=== PATIENT | male | born 1985 | race Caucasian/White ===

== ENCOUNTER → 2020-04-19 07:54 | Outpatient (CLI) | payer MEDICARE, OTHER, SELFPAY ==
--- NOTE | 2020-04-19 08:02 | MR_ITS ---
PROCEDURE: MR LUMBAR SPINE WO CON CLINICAL INDICATION: Low back pain, LLE radiculopathy Lt leg pain, numbness, and tingling. X1yr. No injury. No prior. COMPARISON: No exams were available for comparison TECHNIQUE: Standard multiplanar multiecho sequences are performed without contrast. 3-D MIP and myelographic images are also rendered and reviewed FINDINGS: There is normal alignment. The spinal cord ends at the T12 level. T12-L1: Mild degenerative disc disease with minimal left paracentral disc protrusion without impingement. L1-L2, L2-L3, and L3-L4 have an unremarkable appearance. L4-5: Bulging disc with a medium-sized left paracentral and foraminal disc protrusion. This is causing left lateral recess and foraminal narrowing and is impinging upon the left L5 nerve root. There is canal stenosis at this level with facet and ligamentum hypertrophy L5-S1: Unremarkable. IMPRESSION: 1. Bulging disc at L4-5 with a medium-sized left paracentral and foraminal disc protrusion. This is causing left lateral recess and foraminal narrowing and is impinging upon the left L5 nerve root. There is canal stenosis at this level with facet and ligamentum hypertrophy 2. Mild degenerative disc disease T12-L1 with minimal left paracentral disc protrusion without impingement Dictated by: Kamari Alexis MD 04/20/2020 12:24 Kamari Alexis MD in [place] 04/20/2020 12:24
== END ==
PROVIDERS: PCP Physician Assistant; Visit Provider Physician Assistant
DX: M54.10 Radiculopathy, site unspecified (principal); M54.5 Low back pain
CPT/HCPCS: 72148; 76376

== ENCOUNTER 2020-05-16 08:13 | Emergency (ER) | payer MEDICARE, OTHER, SELFPAY ==
[2020-05-16 08:19] VITALS: BP 167/82; PULSE 82; RESP 17; TEMP 37.2; O2SAT 98; BMI 33.9
--- NOTE | 2020-05-16 08:22 | HMH.EDGENADL ---
ED Disposition Clinical Impression: Splenomegaly Low back pain Qualifiers: Chronicity: acute Back pain laterality: left Sciatica presence: without sciatica Qualified Code(s): M54.5 - Low back pain Disposition: Home, Self-Care Condition on Discharge: Good Instructions: DI for Low Back Pain Additional Instructions: Ibuprofen for pain. Rest for 2 days. Heating pad as needed. Additional instructions for BACK PAIN: See your physician as soon as possible for further evaluation. Return immediately if back pain becomes intolerable, or if fever, numbness or weakness of your legs, loss of control of your bowels or bladder. Prescriptions: Ibuprofen [Ibuprofen 800mg Tab] 800 mg PO Q8HP PRN #15 tab PRN Reason: Moderate Pain Transmission Status: Received by [id number] Referrals: Vamsi Atwood MD [Primary Care Provider] - Forms: Work/School Release - Critical Care Critical Care Time: No Attestation: On , the high probability of a clinically significant, sudden or life threatening deterioration of the following system(s) required my full and direct attention, intervention and personal management. The time I documented below is in addition to time spent performing reported procedures but includes the following listed in this critical care notation. Medical Decision Making - Medical Records Medical records reviewed: Yes: I reviewed the patient's medical records. - Ariel Inquiry Pt receiving controlled substance: No Vital Signs: 05/16/20 08:19 05/16/20 09:30 Temperature 99.0 F 99.0 F Temperature Source Oral Oral Pulse Rate 79 Pulse Rate [Right Radial] 82 Respiratory Rate 17 15 Blood Pressure 155/79 H Blood Pressure [Right Arm] 167/82 H Blood Pressure Mean [Right Arm] 110 02 Sat by Pulse Oximetry 98 Oxygen Delivery Method Room Air Room Air - Lab Data Lab results reviewed: Yes: I reviewed the patient's lab results. Lab Results 05/16/20 08:45: WBC 5.8, RBC 4.72, Hgb 13.4 L, Hct 39.2 L, MCV 83.0, MCH 28.5, MCHC 34.3, RDW 14.6, Plt Count 206, MPV 7.7, Neut % (Auto) 59.2, Lymph % (Auto) 32.5, Frio % (Auto) 5.9, Eos % (Auto) 2.0, Baso % (Auto) 0.3, Neut # (Auto) 3.4, Lymph # (Auto) 1.9, Frio # (Auto) 0.3, Eos # (Auto) 0.1, Baso # (Auto) 0.0 05/16/20 08:45: Sodium 140, Potassium 3.9, Chloride 102, Carbon Dioxide 28, Anion Gap 13.9, BUN 11, Creatinine 0.90, Estimated Creat Clear 184, Estimated GFR 96, Est GFR ( Amer) 116, Glucose 133 H, Calcium 9.6, Total Bilirubin 0.5, AST 29, ALT 30, Alkaline Phosphatase 76, Total Protein 7.1, Albumin 4.2, Globulin 2.9, Albumin/Globulin Ratio 1.4, Lipase 46 05/16/20 08:50: Urine Color Yellow, Urine Appearance Clear, Urine pH 6.0, Ur Specific [place] 1.010, Urine Protein Negative, Urine Glucose (UA) Negative, Urine Ketones Negative, Urine Blood Negative, Urine Nitrate Negative, Urine Bilirubin Negative, Urine Urobilinogen 0.2, Ur Leukocyte Esterase Negative, Urine WBC 3-5, Ur Squamous Epith Cells 3-5 Result diagrams: 05/16/20 08:45 05/16/20 08:45 Orders (Tests/Meds): ED MEDICATIONS Discontinued Medications Generic Name Dose Route Start Last Admin Trade Name Freq PRN Reason Stop Dose Admin Ketorolac Tromethamine 30 mg 05/16/20 08:28 05/16/20 08:54 Toradol 30mg/Ml Vial IV 05/16/20 08:29 30 mg ONCE ONE Administration - CT Data CT Scan: Abdomen, Pelvis Time Received: 09:[address] Reviewed: Yes: I have viewed the radiologist's interpretation Findings Narrative: PROCEDURE: CT ABDOMEN PELVIS WO CON CLINICAL INDICATION: flank pain Left flank pain COMPARISON: No exams were available for comparison TECHNIQUE: Axial images obtained with sagittal and coronal reformats. All CT scans at the facility use one or more dose reduction, viz: automated exposure control, ma/kV adjustment per patient size (including targeted exams where dose is matched to indication, i.e. head), or iterative reconstruction technique. FINDIN
--- NOTE | 2020-05-16 08:27 | CT_ITS ---
PROCEDURE: CT ABDOMEN PELVIS WO CON CLINICAL INDICATION: flank pain Left flank pain COMPARISON: No exams were available for comparison TECHNIQUE: Axial images obtained with sagittal and coronal reformats. All CT scans at the facility use one or more dose reduction, viz: automated exposure control, ma/kV adjustment per patient size (including targeted exams where dose is matched to indication, i.e. head), or iterative reconstruction technique. FINDINGS: LOWER THORAX: No acute finding ABDOMEN & PELVIS: The spleen is enlarged at 16 cm AP. The liver, adrenal glands, pancreas, gallbladder, and kidneys have an unremarkable unenhanced appearance. No renal or ureteral calculi. There are few small periaortic lymph nodes. There is a tiny umbilical hernia containing fat. The appendix has an unremarkable appearance. No intestinal obstruction or free air. Scattered small nodes are present in the mesenteries nonspecific. No acute bony findings. IMPRESSION: 1. No acute finding. 2. Splenomegaly Dictated by: Kamari Alexis MD 05/16/2020 09:03 Kamari Alexis MD in [place] 05/16/2020 09:03
[2020-05-16 09:02] LABS: Microscopic, Urine URINE MICROSCOPIC (MICROSCOPIC)
[2020-05-16 09:03] LABS: Appearance,Urine CLEAR (Clear); Bilirubin,Urine Negative (Negative); Blood, Urine Negative (Negative); Color,Urine YELLOW (Yellow); Glucose,Urine (UA) Negative (Negative); Ketones,Urine Negative (Negative); Leukocyte Esterase,Urine Negative (Negative); Nitrate,Urine Negative (Negative); Protein,Urine Negative (Negative); Urobilinogen,Urine 0.2 EU/dl (0.2)
[2020-05-16 09:05] LABS: Basophils % 0.3 % (0.1-2.0); Eosinophils # 0.1 K/mm3 (0.0-0.4); Hematocrit 39.2 % (42.0-52.0); Hemoglobin 13.4 g/dL (14.1-18.0); Lymphocytes # 1.9 K/mm3 (0.7-4.5); Lymphocytes % 32.5 % (10-50); Mean Corpuscular HGB Conc 34.3 g/dL (31.8-35.4); Mean Corpuscular Hemoglobin 28.5 pg (27.0-31.2); Mean Platelet Volume 7.7 fl (7.4-10.4); Monocytes # 0.3 K/mm3 (0.1-1.0); Monocytes % 5.9 % (1.7-9.3); Neutrophils # 3.4 K/mm3 (1.8-7.8); Neutrophils % 59.2 % (37.0-80.0); Platelet Count 206 K/mm3 (142-424); Red Blood Count 4.72 M/mm3 (4.60-6.20); Red Cell Distribution Width 14.6 % (11.5-17.5); White Blood Count 5.8 K/mm3 (4.8-10.8)
[2020-05-16 09:07] LABS: Chloride 102 mmol/L (98-107); Potassium 3.9 mmoL/L (3.5-5.1); Sodium 140 mmol/L (136-145)
[2020-05-16 09:09] LABS: Blood Urea Nitrogen 11 mg/dl (9-20); Creatinine Clearance Estimated 184 mL/min (50-200); Estimated Glomerular Filt Rate 96 ml/min (>60); GFR (African American) 116 ML/MIN (>60)
[2020-05-16 09:10] LABS: Alanine Aminotransferase 30 U/L (12-78); Albumin Level 4.2 g/dl (3.5-5.0); Albumin/Globulin Ratio 1.4 (1.1-1.8); Alkaline Phosphatase 76 U/L (38-126); Anion Gap 13.9 mEq/L (5-15); Aspartate Amino Transferase 29 U/L (17-59); Bilirubin,Total 0.5 mg/dl (0.2-1.3); Calcium 9.6 mg/dl (8.4-10.2); Carbon Dioxide 28 mmol/L (22.0-30.0); Globulin 2.9 g/dL (1.3-3.2); Glucose 133 mg/dl (74-100); Lipase 46 U/L (23-300); Total Protein,Serum 7.1 g/dl (6.3-8.2)
[2020-05-16 09:30] VITALS: BP 155/79; PULSE 79; RESP 15; TEMP 37.2; O2SAT 100
== END 2020-05-16 09:31 | disposition home or self-care (01) ==
PROVIDERS: Emergency Provider Emergency Medicine; PCP Emergency Medicine
DX: R16.1 Splenomegaly, not elsewhere classified (principal); M54.5 Low back pain; F17.210 Nicotine dependence, cigarettes, uncomplicated; F11.11 Opioid abuse, in remission
CPT/HCPCS: 74176; 80053; 81001; 83690; 85025; 96374; 99283

== ENCOUNTER 2020-07-29 19:28 | Emergency (ER) | payer MEDICARE, OTHER, SELFPAY ==
[2020-07-29 19:50] VITALS: BP 176/95; PULSE 86; RESP 16; TEMP 37.1; O2SAT 98; BMI 33.9
[2020-07-29 20:46] VITALS: BP 176/95; PULSE 86; RESP 16; TEMP 37.1; O2SAT 98
== END 2020-07-29 20:48 | disposition left against medical advice (07) ==
LOC: UTC 20:23
PROVIDERS: Emergency Provider Nurse Practitioner; PCP Emergency Medicine
DX: Z53.21 Procedure and treatment not carried out due to patient leaving prior to being seen by health care provider (principal)
CPT/HCPCS: G0463

== ENCOUNTER 2021-09-23 09:07 | Emergency (ER) | payer MEDICARE, OTHER, SELFPAY ==
[2021-09-23 09:27] VITALS: BP 156/93; PULSE 109; RESP 21; TEMP 37.9; O2SAT 97; BMI 33.9
--- NOTE | 2021-09-23 09:41 | HMH.EDUTC ---
[facility] [place] Clinical Impression: Otitis media Qualifiers: Otitis media type: unspecified Laterality: left Qualified Code(s): H66.92 - Otitis media, unspecified, left ear Disposition: Home, Self-Care Condition on Discharge: Good Instructions: Middle Ear Infection, DI for COVID-19 (Suspected or Confirmed ), Preventing the Spread of Coronavirus Discharge Instructions Additional Instructions: *Monitor Temp, Over the counter Motrin or Tylenol as directed/as needed Tylenol every 4 hours and Motrin every 6 hours (as long as your family doctor has told you that you can take it) for fever or pain. and straight to ER if unable to lower temp less than 101.0 after medication given *Warm salt water gargles may help to soothe the throat *Throat Lozenges *Warm fluids like tea with honey may help to soothe the throat *Sleep elevated *Humidifier/Vaporizer Follow up IMMEDIATELY for new or worsening symptoms or no Noticeable improvement over the next 48-72 hours. 911 for difficulty breathing or swallowing You were tested for today for COVID19 your test result should be back in the next 24-48 hours, you may check your results on the [facility] My Health Portal if you have trouble logging on you may call [employer] support for assistance You was given a handout with instructions for Self Quarantine and Self isolation for while you wait on test results and what to do if they are positive If you are positive the Health Dept will be contacting you also Make sure to take your Vitamins Vit. C Vit D and Zinc if you can take them Prescriptions: Meclizine HCl [Antivert 12.5mg tablet] 12.5 mg PO Q8HP PRN #9 tab PRN Reason: Dizziness Transmission Status: Pending to [facility] Amoxicillin [Amoxicillin 875MG Tab] 875 mg PO Q12H #20 tab Transmission Status: Pending to [facility] Referrals: Vamsi Atwood MD [Primary Care Provider] - As needed Time of Disposition: 09:55 Medical Decision Making - Ariel Inquiry Pt receiving controlled substance: No Ariel was queried for this patient: No Vital Signs: 09/23/21 09:27 Temperature 100.2 F H Temperature Source Oral Pulse Rate [Left] 109 H Respiratory Rate 21 Blood Pressure [Right Arm] 156/93 H Blood Pressure Mean [Right Arm] 114 02 Sat by Pulse Oximetry 97 - Lab Data Lab Results 09/23/21 09:24: Influenza Type A Ag Negative, Influenza Type B Ag Negative Orders (Tests/Meds): ORDERS Category Date Time Status Covid-19 Nasal PCR ([facility]) Routine Lab 09/23/21 09:24 Ordered Medical Decision Narrative: Medications discussed with pharmacy [facility] [place] HPI - General Stated complaint: fever, cough, h/a, lightheaded Time Seen by Provider: 09/23/21 09:41 Mode of Arrival: Ambulatory Source of Information: Patient Limitations: No Limitations Description of Symptoms (Recalled from Triage Doc. by RN): pt c/o being light headed, cough, fever and nausea. x3 days. HEENT Symptoms (Recalled from RN notes): No Resp Symptoms (Recalled from RN notes): Yes (cough) Skin Symptoms (Recalled from RN notes): No MS Symptoms (Recalled from RN notes): No Functional Status (Recalled from RN notes): light headed - History of Present Illness Provider Complaint: Patient states that he hasnt felt well for about 3 days States that he has been having fever, body aches, chills, nausea, pain in his ears, and feeling dizzy at times State that this morning he woke up and he still wasnt feeling well so he came in to get checked - Related Data Home Medications Medication Instructions Recorded Confirmed methadone 5 mg/5 mL oral solution 60 mg PO DAILY PRN ml 04/28/19 03/28/21 Previous Rx's Medication Instructions Recorded Ibuprofen [Ibuprofen 800mg Tab] 800 mg PO Q8HP PRN #15 tab 05/16/20 amoxicillin 875 mg-potassium 1 tab PO BID 10 Days #20 tab 03/28/21 clavulanate 125 mg tablet ciprofloxacin 0.3 %-dexamethasone 4 drp OTIC BID 7 Days #7.5 ml 03/28/21 0.1 % ear drops,renetta
[2021-09-23 09:45] LABS: UTC Influenza A Antigen Negative (Negative); UTC Influenza B Antigen Negative (Negative)
[2021-09-23 09:56] VITALS: BP 156/93; PULSE 109; RESP 21; TEMP 37.9
== END 2021-09-23 10:15 | disposition home or self-care (01) ==
PROVIDERS: Emergency Provider Nurse Practitioner; PCP Emergency Medicine
DX: U07.1 COVID-19 (principal); H66.92 Otitis media, unspecified, left ear; F17.210 Nicotine dependence, cigarettes, uncomplicated
CPT/HCPCS: G0463; 87804; 99202; C9803; U0003; U0005

== ENCOUNTER 2022-03-18 16:05 | Emergency (ER) | payer MEDICARE, OTHER, SELFPAY ==
[2022-03-18 16:50] VITALS: BP 146/92; PULSE 94; RESP 19; TEMP 36.8; O2SAT 97; BMI 35.6
--- NOTE | 2022-03-18 17:31 | HMH.EDUTC ---
[facility] [place] Clinical Impression: Otitis media Qualifiers: Otitis media type: unspecified Laterality: left Qualified Code(s): H66.92 - Otitis media, unspecified, left ear Disposition: Home, Self-Care Condition on Discharge: Good Instructions: Middle Ear Infection, Amoxicillin Additional Instructions: Take medication as prescribed Follow up with your Family Doctor if no improvement or any worsening of symptoms Return if needed Straight to ER if any life threatening symptoms Prescriptions: Amoxicillin [Amoxicillin 875MG Tab] 875 mg PO Q12H #20 tab Transmission Status: Pending to [facility] methylPREDNISolone [Medrol 4mg tab] 4 mg PO DIRECTED #21 tab Transmission Status: Pending to [facility] Referrals: Vamsi Atwood MD [Primary Care Provider] - As needed Time of Disposition: 17:37 Medical Decision Making - Ariel Inquiry Pt receiving controlled substance: No Ariel was queried for this patient: No Vital Signs: 03/18/22 16:50 Temperature 98.3 F Temperature Source Oral Pulse Rate [Right Brachial] 94 H Respiratory Rate 19 Blood Pressure [Right Arm] 146/92 H Blood Pressure Mean [Right Arm] 110 Blood Pressure Source [Right Arm] Automatic Cuff Blood Pressure Position [Right Arm] Sitting 02 Sat by Pulse Oximetry 97 Oxygen Delivery Method Room Air [facility] [place] - General Stated complaint: L Ear pain Time Seen by Provider: 03/18/22 17:31 Mode of Arrival: Ambulatory Source of Information: Patient Limitations: No Limitations Description of Symptoms (Recalled from Triage Doc. by RN): PATIENT C/O LEFT EAR PAIN SINCE FRIDAY HEENT Symptoms (Recalled from RN notes): Yes Resp Symptoms (Recalled from RN notes): No Skin Symptoms (Recalled from RN notes): No MS Symptoms (Recalled from RN notes): No Functional Status (Recalled from RN notes): WNL - History of Present Illness Provider Complaint: Patient state that he has been having pain in his left ear since State that pain and pressure has been getting worse so he came in to get it checked before it got too bad - Related Data Home Medications Medication Instructions Recorded Confirmed methadone 5 mg/5 mL oral solution 60 mg PO DAILY PRN ml 04/28/19 03/28/21 Previous Rx's Medication Instructions Recorded Ibuprofen [Ibuprofen 800mg Tab] 800 mg PO Q8HP PRN #15 tab 05/16/20 amoxicillin 875 mg-potassium 1 tab PO BID 10 Days #20 tab 03/28/21 clavulanate 125 mg tablet ciprofloxacin 0.3 %-dexamethasone 4 drp OTIC BID 7 Days #7.5 ml 03/28/21 0.1 % ear drops,suspension Amoxicillin [Amoxicillin 875MG 875 mg PO Q12H #20 tab 09/23/21 Tab] Meclizine HCl [Antivert 12.5mg 12.5 mg PO Q8HP PRN #9 tab 09/23/21 tablet] Amoxicillin [Amoxicillin 875MG 875 mg PO Q12H #20 tab 03/18/22 Tab] methylPREDNISolone [Medrol 4mg 4 mg PO DIRECTED #21 tab 03/18/22 tab] Allergies Allergy/AdvReac Type Severity Reaction Status Date / Time erythromycin base Allergy Mild Verified 03/28/21 09:46 [ERYTHROMYCIN BASE] - Worker's Comp Is this a Worker's Comp case?: No [facility] History - Hepatitis A Screen Attestation statement:: This patient has been screened for Hepatitis A risk factors. I have reviewed the patient's past medical history: Yes 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: Reports:: Deep Vein Thrombosis Denies:: Diabetes Mellitus Type 1, Diabetes Mellitus Type 2 Laterality Cases: Right: Arthroscopy Knee Other Surgeries: Yes: Other Amputation: No Fractures: Yes Comment: both ankles,rt wrist, back - Social History Smoking Status: Current every day smoker Tobacco Type: cigarettes # Packs/Day (cigarettes): 1 #Yrs smoked (if former smoker): 16 Alcohol Intake: never Alcohol Intake Frequency:: a few times a month Substance Use Type: IV drugs, former substance user Occupational Status: other Housing: apartment Family Hx:: Cancer, Heart Attack, Hypertension ROS Obtained: Yes All systems reviewed & no add
[2022-03-18 17:37] VITALS: BP 146/92; PULSE 94; RESP 19; TEMP 36.8; O2SAT 97
== END 2022-03-18 17:40 | disposition home or self-care (01) ==
PROVIDERS: Emergency Provider Nurse Practitioner; PCP Emergency Medicine
DX: H66.92 Otitis media, unspecified, left ear (principal)
CPT/HCPCS: 99212; G0463

== ENCOUNTER 2022-05-09 14:39 | Emergency (ER) | payer MEDICARE, OTHER, SELFPAY ==
[2022-05-09 14:45] VITALS: BP 183/108; PULSE 75; RESP 22; TEMP 36.7; O2SAT 98; BMI 37.0
--- NOTE | 2022-05-09 15:04 | EXP.UTC ---
Discharge Plan Disposition Patient Disposition: Home, Self-Care Condition: Good Prescriptions Prescriptions: New lisinopril 10 mg tablet 10 mg PO DAILY 30 Days Qty: 30 0RF No Action omeprazole 20 mg Capsule,Delayed Release(Dr/Ec) 20 mg PO DAILY Referrals Follow up/Referrals: Vamsi Atwood MD [Primary Care Provider] - See instructions Activity Restrictions/Add. Instructions Additional Instructions/Restrictions: Take medication as prescribed Follow up with Family Doctor as scheduled Return if needed Straight to ER if any life threatening symptoms Clinical Impressions Clinical Impression: Hypertension Discharge ED Provider: Jena Bustillo [facility] [place] General Stated complaint: high blood pressure Mode of Arrival: Ambulatory Source of Information: Patient Limitations: No Limitations Time Seen by Provider: 05/09/22 15:04 Description of Symptoms (Recalled from Triage Doc. by RN): PATIENT STATES HE WENT TO A CHIROPRACTOR AND WAS TOLD HE HAS HIGH BLOOD PRESSURE AND SUGGESTED HE FOLLOW UP WITH PCP. HE REPORTS HE DID MAKE AN APPOINTMENT WITH HIS PCP, BUT IT'S NOT UNTIL A WEEK FROM TODAY. PATIENT C/O HEADACHE X 3 DAYS HEENT Symptoms (Recalled from RN notes): Yes Resp Symptoms (Recalled from RN notes): No Skin Symptoms (Recalled from RN notes): No MS Symptoms (Recalled from RN notes): No Functional Status (Recalled from RN notes): WNL History of Present Illness Provider Complaint: Patient states that he seen the Chiropractor and they told him his blood pressure was elevated and he called to make appointment with his PCP and was given appointment for next week States that his headache was better now but was worried that his blood pressure was that high and wanted to come in and get checked and started on Medication if he could Related Data Home Medications Medication Instructions Recorded Confirmed omeprazole 20 mg capsule,delayed 20 mg PO DAILY GERD 05/09/22 05/09/22 release Previous Rx's Medication Instructions Recorded lisinopril 10 mg tablet 10 mg PO DAILY 30 days #30 tabs 05/09/22 Allergies Allergy/AdvReac Type Severity Reaction Status Date / Time erythromycin base Allergy Mild Verified 03/28/21 09:46 [ERYTHROMYCIN BASE] Worker's Comp Is this a Worker's Comp case?: No [facility] Surgical History (Updated 05/09/22 @ 14:52 by Shahrzad Ward RN) History of back surgery History of right knee surgery Social History (Updated 05/09/22 @ 14:52 by Shahrzad Ward RN) Smoking Status: Current every day smoker tobacco type: cigarettes packs per day: 1 alcohol intake: never substance use type: former substance user and IV drugs current occupational status: other Travel in the last 8 weeks: None housing: apartment ROS Obtained: Yes All systems reviewed & no additional complaints except as documented and Yes Systems reviewed as appropriate & no additional complaints except as documented Constitutional Constitutional: Reports headache(s) Eyes Eyes: Reports system reviewed and no additional complaints, except as documented, Denies blurry vision, Denies loss of vision, Denies photophobia and Denies seeing flashes ENT Ears, Nose, Mouth, and Throat: Reports system reviewed and no additional complaints, except as documented, Reports as per HPI and Reports headache(s) Cardiovascular Cardiovascular: Reports system reviewed and no additional complaints, except as documented, Reports as per HPI, Denies chest pain, Denies dyspnea and Denies edema Respiratory Respiratory: Reports system reviewed and no additional complaints, except as documented, Reports as per HPI, Denies shortness of breath and Denies dyspnea Gastrointestinal Gastrointestingal: Reports system reviewed and no additional complaints, except as documented and as per HPI Musculoskeletal Musculoskeletal: Reports system reviewed and no additional complaints, except as documented and Reports as per HPI Neurologic Ne
[2022-05-09 15:18] VITALS: BP 183/108; PULSE 75; RESP 22; TEMP 36.7; O2SAT 98
== END 2022-05-09 15:25 | disposition home or self-care (01) ==
PROVIDERS: Emergency Provider Nurse Practitioner; PCP Emergency Medicine
DX: I10 Essential (primary) hypertension (principal)
CPT/HCPCS: 99212; G0463

== ENCOUNTER → 2022-05-16 16:55 | Outpatient (CLI) | payer MEDICARE, OTHER, SELFPAY ==
[2022-05-16 16:11] LABS: Basophils # 0.1 K/mm3 (0-0.2); Basophils % 0.9 % (0.1-2.0); Eosinophils # 0.1 K/mm3 (0.0-0.4); Eosinophils % 1.8 % (0.1-12.0); Hematocrit 40.7 % (42.0-52.0); Hemoglobin 13.9 g/dL (14.1-18.0); Lymphocytes # 2.2 K/mm3 (0.7-4.5); Lymphocytes % 36.8 % (10-50); Mean Corpuscular HGB Conc 34.1 g/dL (31.8-35.4); Mean Corpuscular Hemoglobin 28.1 pg (27.0-31.2); Mean Corpuscular Volume 82.6 fl (80-94); Mean Platelet Volume 8.9 fl (7.4-10.4); Monocytes # 0.3 K/mm3 (0.1-1.0); Monocytes % 5.3 % (1.7-9.3); Neutrophils # 3.3 K/mm3 (1.8-7.8); Neutrophils % 55.3 % (37.0-80.0); Platelet Count 287 K/mm3 (142-424); Red Blood Count 4.92 M/mm3 (4.60-6.20); Red Cell Distribution Width 14.7 % (11.5-17.5); White Blood Count 5.9 K/mm3 (4.8-10.8)
[2022-05-16 16:33] LABS: Alanine Aminotransferase 36 U/L (12-78); Albumin Level 4.5 g/dl (3.5-5.0); Albumin/Globulin Ratio 1.7 (1.1-1.8); Alkaline Phosphatase 75 U/L (38-126); Aspartate Amino Transferase 38 U/L (17-59); Bilirubin,Total 0.4 mg/dl (0.2-1.3); Blood Urea Nitrogen 8 mg/dl (9-20); Carbon Dioxide 29 mmol/L (22.0-30.0); Estimated Glomerular Filt Rate 84 ml/min (>60); GFR (African American) 102 ML/MIN (>60); Globulin 2.6 g/dL (1.3-3.2); Total Protein,Serum 7.1 g/dl (6.3-8.2)
[2022-05-16 16:34] LABS: Calcium 8.9 mg/dl (8.4-10.2); Chol/HDL Ratio 5.2 (1-3.5); Cholesterol 166 mg/dl (140-200); Glucose 137 mg/dl (74-100); HDL Cholesterol 32 mg/dl (40-60); Triglycerides 109 mg/dl (30-150); VLDL Cholesterol 22 mg/dL (0-40)
[2022-05-16 16:45] LABS: Direct LDL Cholesterol 108.41 mg/dL (100-129)
[2022-05-16 16:52] LABS: Anion Gap 15.6 mEq/L (5-15); Chloride 101 mmol/L (98-107); Potassium 3.6 mmoL/L (3.5-5.1); Sodium 142 mmol/L (136-145)
[2022-05-16 17:05] LABS: Thyroid Stimulating Hormone 0.99 uIU/mL (0.465-4.68)
[2022-05-16 17:12] LABS: 25-OH Vitamin D, Total 28.1 ng/mL (30-100)
[2022-05-16 17:27] LABS: Prostate Specific Ag Screen 0.7 ng/ml (0.0-4.0)
== END ==
LOC: LAB 05-17 00:10 → LAB.DROPOF 05-17 11:19
PROVIDERS: PCP Physician Assistant; Visit Provider Physician Assistant
DX: R53.83 Other fatigue (principal); I10 Essential (primary) hypertension; Z12.5 Encounter for screening for malignant neoplasm of prostate; E55.9 Vitamin D deficiency, unspecified
CPT/HCPCS: 80053; 80061; 82306; 83036; 84443; 85025; G0103

== ENCOUNTER → 2022-05-17 16:59 | Outpatient (CLI) | payer MEDICARE, OTHER, SELFPAY ==
[2022-05-17 10:32] LABS: Hemoglobin A1C 5.5 % (4.0-6.0)
== END ==
PROVIDERS: PCP Physician Assistant; Visit Provider Physician Assistant
DX: R73.09 Other abnormal glucose (principal)
CPT/HCPCS: 83036

== ENCOUNTER → 2022-06-06 07:51 | Outpatient (CLI) | payer MEDICARE, OTHER, SELFPAY ==
--- NOTE | 2022-06-06 07:56 | CA_ITS ---
FINAL REPORT CLINICAL HISTORY: HTN FINDINGS: Aorta velocity: 135 cm/sec Right kidney: 11.6 cm. No evidence of hydronephrosis or mass. Right intrarenal RI: 0.63 Right renal artery velocity: 158 cm/sec. Right RAR (Renal artery-Aortic Ratio): 1.17 Left Kidney: 12.5 cm. No evidence of hydronephrosis or mass. Left intrarenal RI: 0.52 Left renal artery velocity: 108 cm/sec. Left RAR (Renal Artery-Aortic Ratio): 0.80 IMPRESSION: No evidence of significant renal artery stenosis. CT angiogram or postcontrast MR angiogram would be more sensitive for evaluation of possible renal artery stenosis. Reviewed, Interpreted and Dictated by Garcia Melendez III, MD Transcribed by Tee Tripp Authenticated and [facility]
== END ==
PROVIDERS: PCP Physician Assistant; Visit Provider Nurse Practitioner Family
DX: I10 Essential (primary) hypertension (principal)
CPT/HCPCS: 93976

== ENCOUNTER → 2022-06-24 09:13 | Outpatient (CLI) | payer MEDICARE, OTHER, SELFPAY ==
--- NOTE | 2022-06-24 09:14 | CA_ITS ---
APPROVED REPORT Exam: Exercise Treadmill Technologist: Ines Braswell, Ht: 5 ft 11 in Wt: 261 lbs BSA: 2.36 m2 HR: 75 bpm Rhythm: SR 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: HTN Medications: Amlodipine,,,,, Lisinopril,,,,, Omeprazole,,,,, Clonidine,,,,, Metoprolol,,,,, Vit D3,,,,, Cardiac Risk Factors: HTN, FHX of CAD, Smoking Stress Test Details Test: Ron HR Resting HR: 93 bpm Max Heart Rate (APMHR): 182 bpm Max HR Achieved: 163 bpm Target HR (85% APMHR): 154 bpm % of APMHR: 89 Recovery HR: 122 bpm BP Resting BP: 144/91 mmHg Max BP: 196/85 mmHg Recovery BP: 184.0/99.0 mmHg ECG Resting ECG: SR Clinical Exercise duration: 09:00 min Highest Stage Achieved: Exercise capacity: 10.1 METs Stress ECG Conclusion No CP noted PVC noted in recovery. <1.5mm ST segment changes. Normal exercise treadmill stress test. Test Summary Stage 3 01:00 14.0 3.4 151 . . . . REST . . . . . . . Sitting REST 06:26 0.0 0.0 93 . 144/ 91 . . Stage 1 01:00 10.0 1.7 107 . . . . Stage 1 02:00 10.0 1.7 116 . . . . Stage 1 03:00 10.0 1.7 113 . 140/ 80 . . Stage 2 01:00 12.0 2.5 124 . . . . Stage 2 02:00 12.0 2.5 133 . . . . Stage 2 03:00 12.0 2.5 135 . 150/ 95 . . Stage 3 01:00 14.0 3.4 151 . . . . Stage 3 02:00 14.0 3.4 158 . . . . Stage 3 03:00 14.0 3.4 162 . . . Stop exercise at 09:00 RECOVERY 01:00 0.0 0.0 132 . . . . RECOVERY 02:00 0.0 0.0 113 . 184/ 99 . . RECOVERY 03:00 0.0 0.0 103 . 190/ 93 . . RECOVERY 04:00 0.0 0.0 102 . 196/ 85 . . RECOVERY 05:00 0.0 0.0 102 . 162/ 93 . . RECOVERY 06:00 0.0 0.0 94 . 162/ 93 . . RECOVERY 07:00 0.0 0.0 95 . 162/ 93 . . RECOVERY 07:23 0.0 0.0 101 . 156/ 89 . . Electronically signed by : Keny Parikh MD 06/24/2022 17:36:41
--- NOTE | 2022-06-24 09:14 | CA_ITS ---
APPROVED REPORT EXAM: Comprehensive 2D, Doppler, and color-flow Echocardiogram Pest Controller: Esthela Hickmna CRT Ht: 5 ft 11 in Wt: 261lbs BSA: 2.36 BP: 142/82 mmHg Indications: Chest Pain, Hypertension/HDD,smoker, former IV drug user 2D Dimensions LVOT 1.95 cm (M/F) 1.5-2.5 LA Volume 40.00 mL LA Volume Index 16.90 mL/m2 (M/F) 16-34 M-Mode Dimensions RVDd 2.18 cm (0.9-2.6) LA Diam 3.73 cm (1.9-4.0) LVDd 4.40 cm (3.5-5.7) Ao Diam 3.76 cm (2.0-3.7) LVDs 2.84 cm (3.5-5.7) IVSd 1.79 cm (0.6-1.1) PWd 1.29 cm (0.6-1.1) EF (Teich) 65.10% FS 35.50% EDV (Teich) 87.70 mL TAPSE 1.97 (<1.7) ESV (Teich) 30.60 mL LV Diastology E Decel Time 213.00 (160-240 msec) E/A Ratio 1.14 MED E' 10.10 (< 7 cm/sec) MED A' 7.70 cm/s E'/MED E' Ratio 6.15 (>14) LAT E' 11.40 (<10 cm/sec) LAT A' 5.80 cm/s E/LAT E' Ratio 5.45 (>14) Aortic Valve AO Peak GR. 4.20 mmHg Mitral Valve MV E Max Ori. 62.00 (40-130 cm/s) MV A Velocity 54.00 (40-130 cm/s) E/A Ratio 1.14 MV Decel. Time 213.00 (160-240 ms) MV PHT 62.00 ms Pulmonary Valve PV Peak Velocity 153.00 (50-150 cm/s) Tricuspid Valve TR P. Velocity 186.00 cm/s RAP Estimate 10.00 mmHg RVSP 23.90 mmHg Left Ventricle Left atrium is mildly enlarged, left ventricle is normal size mild concentric left ventricular hypertrophy, estimated ejection fraction 55% with no regional wall motion abnormality, diastolic parameters are inconclusive. Right Ventricle Right atrium and right ventricle are normal size and contractility. Aortic Valve Aortic valve is minimally thickened and fibrosed there is no aortic stenosis or aortic insufficiency. Mitral Valve Mitral valve grossly normal, there is trace mitral regurgitation. Tricuspid Valve Tricuspid valve grossly normal, there is trace tricuspid regurgitation, tricuspid regurgitation jet velocity is inadequate for calculation of the right ventricular systolic pressure. Pulmonic Valve Pulmonic valve is poorly visualized. Great Vessels Aortic root is normal size. Inferior vena cava is poorly visualized. Pericardium No significant pericardial effusion noted. Conclusion 1. Mildly enlarged left atrium, normal left ventricular size, mild concentric left ventricular hypertrophy, estimated ejection fraction 55% with no regional wall motion abnormality, diastolic parameters are inconclusive. 2. Trace mitral and tricuspid regurgitation. 3. No significant pericardial effusion. 4. Inferior vena cava is poorly visualized. Electronically signed by : Keny Parikh MD 06/24/2022 20:21:04
== END ==
PROVIDERS: PCP Physician Assistant; Visit Provider Nurse Practitioner Family
DX: I10 Essential (primary) hypertension (principal); R07.89 Other chest pain; Z82.49 Family history of ischemic heart disease and other diseases of the circulatory system
CPT/HCPCS: 93017; 93306

== ENCOUNTER 2022-07-22 15:06 | Emergency (ER) | payer MEDICARE, OTHER, SELFPAY ==
[2022-07-22] VITALS (8 sets, daily range): BP systolic 119–143; BP diastolic 62–86; PULSE 61–81; RESP 16–18; TEMP 36.7; O2SAT 96–99; BMI 36.2
--- NOTE | 2022-07-22 15:18 | XR_ITS ---
FINAL REPORT CLINICAL HISTORY: abdominal pain, epigastric area per patient. Non-smoker. No chest surgeries. COMPARISON: 02/19/2017 FINDINGS: A single portable view of the chest was obtained. The heart size and pulmonary vascularity are within normal limits. The mediastinum is within normal limits. No acute pulmonary abnormality is identified. The bony thorax is intact. IMPRESSION: No active cardiopulmonary disease. Reviewed, Interpreted and Dictated by Garcia Melendez III, MD Transcribed by Kati Aguilera Authenticated and [facility]
[2022-07-22 15:37] LABS: Basophils # 0.1 K/mm3 (0-0.2); Eosinophils # 0.1 K/mm3 (0.0-0.4); Eosinophils % 1.4 % (0.1-12.0); Hematocrit 37.9 % (42.0-52.0); Hemoglobin 13.3 g/dL (14.1-18.0); Lymphocytes # 2.4 K/mm3 (0.7-4.5); Lymphocytes % 30.7 % (10-50); Mean Corpuscular HGB Conc 35.2 g/dL (31.8-35.4); Mean Corpuscular Volume 79.7 fl (80-94); Mean Platelet Volume 8.2 fl (7.4-10.4); Monocytes # 0.4 K/mm3 (0.1-1.0); Monocytes % 5.1 % (1.7-9.3); Neutrophils # 4.8 K/mm3 (1.8-7.8); Neutrophils % 61.8 % (37.0-80.0); Platelet Count 273 K/mm3 (142-424); Red Blood Count 4.75 M/mm3 (4.60-6.20); Red Cell Distribution Width 14.7 % (11.5-17.5); White Blood Count 7.7 K/mm3 (4.8-10.8)
--- NOTE | 2022-07-22 15:46 | HMH.EDGENADL ---
Discharge Plan Disposition Patient Disposition: Home, Self-Care Condition: Fair Prescriptions Prescriptions: New ondansetron 4 mg tablet,disintegrating 4 mg PO Q6H PRN (Reason: nausea and vomiting) Qty: 10 0RF dicyclomine 20 mg tablet 20 mg PO TID PRN (Reason: abodminal cramps) Qty: 10 0RF alum-mag hydroxide-simeth [Maalox Advanced] 200-200-20 mg/5 mL suspension 5 ml PO Q3H PRN (Reason: dyspepsia) Qty: 355 0RF No Action cholecalciferol (vitamin D3) 50 mcg (2,000 unit) capsule 50 mcg PO DAILY Qty: 30 0RF carvedilol [Coreg] 12.5 mg tablet 12.5 mg PO BID Qty: 180 3RF Rx Instructions: must administer with a meal/food amlodipine [Norvasc] 10 mg tablet 10 mg PO DAILY Qty: 90 3RF cholecalciferol (vitamin D3) 1,250 mcg (50,000 unit) capsule 1,250 mcg PO WEEKLY Qty: 14 3RF lisinopril 40 mg tablet 40 mg PO DAILY Qty: 90 3RF omeprazole 20 mg Capsule,Delayed Release(Dr/Ec) 20 mg PO DAILY Referrals Follow up/Referrals: Tala Velásquez PA [Primary Care Provider] - See instructions Activity Restrictions/Add. Instructions Additional Instructions/Restrictions: You have been evaluated for upper abdominal pain. CT scan is concerning for inflammation of the pancreas, called pancreatitis. Please take Tylenol for pain. [place] for severe pain. Take Zofran for nausea. Follow-up with your primary care doctor in 1 to 2 days for symptom recheck. Return to the emergency department at once for any new or worsening symptom, pain, fever, inability to tolerate oral intake. Clinical Impressions Clinical Impression: Acute pancreatitis, Abdominal pain, epigastric Instructions Patient Instructions: DI for Pancreatitis, DI for Epigastric Pain Discharge ED Provider: Angelica Cheng Adult HPI General Chief complaint: PAIN Stated complaint: abd pain Time Seen by Provider: 07/22/22 15:18 History of Present Illness HPI narrative: 37-year-old male presenting to the emergency department abdominal pain. Pain is located in the upper abdomen. Started 2 days ago. He was eating chicken when he swallowed a particularly large bite. [place] like he was going to get choked, but it eventually went down. Since then he has had a throbbing, pressure pain in his upper abdomen. Worse when he bends forward and stands up. Also worse after eating. Has not had much of an appetite. He has never had pain like this before. He takes omeprazole for GERD. Never had EGD. No alcohol use. No prior abdominal surgeries. No fevers, chills, nausea, vomiting, constipation, diarrhea Related Data Home Medications Medication Instructions Recorded Confirmed omeprazole 20 mg capsule,delayed 20 mg PO DAILY GERD 05/09/22 07/04/22 release Previous Rx's Medication Instructions Recorded cholecalciferol (vitamin D3) 1,250 1,250 mcg PO WEEKLY #14 caps 05/17/22 mcg (50,000 unit) capsule cholecalciferol (vitamin D3) 50 50 mcg PO DAILY #30 caps 05/30/22 mcg (2,000 unit) capsule amlodipine 10 mg tablet (Norvasc) 10 mg PO DAILY #90 tabs 07/04/22 carvedilol 12.5 mg tablet (Coreg) 12.5 mg PO BID #180 tabs 07/04/22 lisinopril 40 mg tablet 40 mg PO DAILY #90 tabs 07/17/22 aluminum-mag hydroxide-simethicone 5 ml PO Q3H PRN dyspepsia #355 mL 07/22/22 200 mg-200 mg-20 mg/5 mL oral susp (Maalox Advanced) dicyclomine 20 mg tablet 20 mg PO TID PRN abodminal cramps 07/22/22 #10 tabs ondansetron 4 mg disintegrating 4 mg PO Q6H PRN nausea and 07/22/22 tablet vomiting #10 tabs Allergies Allergy/AdvReac Type Severity Reaction Status Date / Time erythromycin base Allergy Mild Verified 07/04/22 10:41 [ERYTHROMYCIN BASE] [facility] 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 GERD (gastroesophageal reflux disease) Hypertension Surgical History History of back surgery History of right knee surgery Social History (Review
[2022-07-22 15:53] LABS: Chloride 102 mmol/L (98-107); Potassium 3.3 mmoL/L (3.5-5.1); Sodium 139 mmol/L (136-145)
[2022-07-22 15:55] LABS: Alanine Aminotransferase 36 U/L (12-78); Aspartate Amino Transferase 31 U/L (17-59); Blood Urea Nitrogen 11 mg/dl (9-20); Estimated Glomerular Filt Rate 84 ml/min (>60); GFR (African American) 101 ML/MIN (>60)
[2022-07-22 15:56] LABS: Albumin Level 4.7 g/dl (3.5-5.0); Albumin/Globulin Ratio 1.6 (1.1-1.8); Alkaline Phosphatase 81 U/L (38-126); Anion Gap 12.3 mEq/L (5-15); Bilirubin,Total 0.6 mg/dl (0.2-1.3); Calcium 9.6 mg/dl (8.4-10.2); Carbon Dioxide 28 mmol/L (22.0-30.0); Globulin 2.9 g/dL (1.3-3.2); Glucose 136 mg/dl (74-100); Lipase 92 U/L (23-300); Total Protein,Serum 7.6 g/dl (6.3-8.2)
--- NOTE | 2022-07-22 16:05 | CT_ITS ---
PROCEDURE INFORMATION: Exam: CT Abdomen And Pelvis With Contrast Exam date and time: 07/22/2022 4:17 PM Age: 37 years old Clinical indication: Abdominal pain; Epigastric; Additional info: Epigastric pain TECHNIQUE: Imaging protocol: Computed tomography of the abdomen and pelvis with contrast. Radiation optimization: All CT scans at this facility use at least one of these dose optimization techniques: automated exposure control; mA and/or kV adjustment per patient size (includes targeted exams where dose is matched to clinical indication); or iterative reconstruction. Contrast material: ISOVUE; Contrast volume: 75 ml; Contrast route: IV; COMPARISON: CT ABDOMEN PELVIS WO CON 05/16/2020 8:44 AM FINDINGS: Tubes, catheters and devices: None noted. Lungs: Lung bases appear clear. Heart: No significant coronary calcifications. No cardiomegaly. No significant pericardial effusion. Liver: Normal. No mass. Gallbladder and bile ducts: Normal. No calcified stones. No ductal dilation. Pancreas: Mild inflammatory change in the tail of the pancreas. Suspect pancreatitis. Spleen: Normal. No splenomegaly. Adrenal glands: Normal. No mass. Kidneys and ureters: Normal. No hydronephrosis. Stomach and bowel: Unremarkable. No obstruction. No mucosal thickening. Appendix: No evidence of appendicitis. Intraperitoneal space: Unremarkable. No free air. No significant fluid collection. Retroperitoneal space: No significant retroperitoneal inflammatory changes are noted. Vasculature: Unremarkable. No abdominal aortic aneurysm. Lymph nodes: Unremarkable. No enlarged lymph nodes. Urinary bladder: Unremarkable as visualized. Reproductive: Unremarkable as visualized. Bones/joints: Unremarkable. No acute fracture. Soft tissues: Unremarkable. IMPRESSION: Mild pancreatitis of the tail of the pancreas.
== END 2022-07-22 18:24 | disposition home or self-care (01) ==
PROVIDERS: Emergency Provider Emergency Medicine; PCP Physician Assistant
DX: R10.13 Epigastric pain (principal); K85.90 Acute pancreatitis without necrosis or infection, unspecified; Z79.899 Other long term (current) drug therapy; K21.9 Gastro-esophageal reflux disease without esophagitis; Z88.1 Allergy status to other antibiotic agents; I10 Essential (primary) hypertension; F19.11 Other psychoactive substance abuse, in remission
CPT/HCPCS: 71045; 74177; 80053; 83690; 85025; 99285; Q9967

== ENCOUNTER 2023-08-25 16:21 | Emergency (ER) | payer MEDICARE, OTHER, SELFPAY ==
[2023-08-25 16:22] VITALS: BP 141/90; PULSE 63; RESP 18; TEMP 36.8; O2SAT 97; BMI 33.9
--- NOTE | 2023-08-25 16:36 | HMH.EDGENADL ---
Discharge Plan Disposition Patient Disposition: Home, Self-Care Chief Complaint: Recheck/Abnormal Lab/Rx Prescriptions Prescriptions: No Action cholecalciferol (vitamin D3) 50 mcg (2,000 unit) capsule 50 mcg PO DAILY Qty: 30 0RF carvedilol [Coreg] 12.5 mg tablet 12.5 mg PO BID Qty: 180 3RF Rx Instructions: must administer with a meal/food omeprazole 20 mg capsule,delayed release(DR/EC) 20 mg PO BID Qty: 60 3RF lisinopril 40 mg tablet 40 mg PO DAILY Qty: 90 3RF amlodipine [Norvasc] 10 mg tablet 10 mg PO DAILY Qty: 90 3RF ondansetron 4 mg tablet,disintegrating 4 mg PO Q6H PRN (Reason: nausea and vomiting) Qty: 10 0RF dicyclomine 20 mg tablet 20 mg PO TID PRN (Reason: abodminal cramps) Qty: 10 0RF alum-mag hydroxide-simeth [Maalox Advanced] 200-200-20 mg/5 mL suspension 5 ml PO Q3H PRN (Reason: dyspepsia) Qty: 355 0RF Referrals Follow up/Referrals: Tala Velásquez PA [Primary Care Provider] - See instructions Activity Restrictions/Add. Instructions Additional Instructions/Restrictions: At this time it was felt you are safe to be discharged home. If new or worsening symptoms please do not hesitate to return the emergency department. Please continue to take your medications as they are prescribed and follow-up with cardiology as discussed. Clinical Impressions Clinical Impression: Elevated blood pressure reading, Headache Discharge ED Provider: Hair Walter General Adult HPI General Stated complaint: HBP 185/128 Time Seen by Provider: 08/25/23 16:23 History of Present Illness HPI narrative: Patient is a 38-year-old male with past medical history of hypertension on multiple medications who presents emergency department for evaluation of elevated blood pressure and headache. Patient has headache posteriorly whenever his blood pressure is raised. He drank a substantial amount of alcohol on Friday, has had a posterior headache ever since. He noticed his systolic was in the 180s today so he presents here for continued evaluation. No other acute complaints. Patient is compliant with his medications at home. Related Data Previous Rx's Medication Instructions Recorded cholecalciferol (vitamin D3) 50 50 mcg PO DAILY #30 caps 05/30/22 mcg (2,000 unit) capsule carvedilol 12.5 mg tablet (Coreg) 12.5 mg PO BID #180 tabs 07/04/22 aluminum-mag hydroxide-simethicone 5 ml PO Q3H PRN dyspepsia #355 mL 07/22/22 200 mg-200 mg-20 mg/5 mL oral susp (Maalox Advanced) dicyclomine 20 mg tablet 20 mg PO TID PRN abodminal cramps 07/22/22 #10 tabs ondansetron 4 mg disintegrating 4 mg PO Q6H PRN nausea and 07/22/22 tablet vomiting #10 tabs omeprazole 20 mg capsule,delayed 20 mg PO BID GERD #60 caps 09/23/22 release amlodipine 10 mg tablet (Norvasc) 10 mg PO DAILY #90 tabs 06/16/23 lisinopril 40 mg tablet 40 mg PO DAILY #90 tabs 06/16/23 Allergies Allergy/AdvReac Type Severity Reaction Status Date / Time erythromycin base Allergy Mild Verified 12/24/22 14:38 [ERYTHROMYCIN BASE] [facility] Disclaimer: The information contained in this section may have been updated after the patient was seen, as this information can be updated by other users. 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
[2023-08-25 16:40] VITALS: BP 145/90; PULSE 63; RESP 20; TEMP 36.8; O2SAT 97
== END 2023-08-25 16:43 | disposition home or self-care (01) ==
PROVIDERS: Emergency Provider Emergency Medicine; PCP Physician Assistant
DX: R51.9 Headache, unspecified (principal); I10 Essential (primary) hypertension
CPT/HCPCS: 99282

== ENCOUNTER 2024-03-03 09:21 | Outpatient (CLI) | payer MEDICARE, OTHER, SELFPAY ==
[2024-03-03 20:30] LABS: Basophils % 0.8 % (0.1-2.0); Eosinophils # 0.1 K/mm3 (0.0-0.4); Eosinophils % 1.4 % (0.1-12.0); Hematocrit 43.5 % (42.0-52.0); Hemoglobin 14.7 g/dL (14.1-18.0); Lymphocytes # 1.8 K/mm3 (0.7-4.5); Mean Corpuscular HGB Conc 33.9 g/dL (31.8-35.4); Mean Corpuscular Hemoglobin 28.9 pg (27.0-31.2); Mean Corpuscular Volume 85.5 fl (80-94); Mean Platelet Volume 9.1 fl (7.4-10.4); Monocytes # 0.3 K/mm3 (0.1-1.0); Monocytes % 6.9 % (1.7-9.3); Neutrophils # 2.2 K/mm3 (1.8-7.8); Neutrophils % 50.9 % (37.0-80.0); Platelet Count 232 K/mm3 (142-424); Red Blood Count 5.09 M/mm3 (4.60-6.20); Red Cell Distribution Width 14.4 % (11.5-17.5); White Blood Count 4.4 K/mm3 (4.8-10.8)
[2024-03-03 20:49] LABS: Alanine Aminotransferase 60 U/L (12-78); Albumin Level 4.5 g/dl (3.5-5.0); Albumin/Globulin Ratio 1.6 (1.1-1.8); Alkaline Phosphatase 80 U/L (38-126); Aspartate Amino Transferase 41 U/L (17-59); Bilirubin,Total 0.5 mg/dl (0.2-1.3); Blood Urea Nitrogen 12 mg/dl (9-20); Calcium 9.4 mg/dl (8.4-10.2); Carbon Dioxide 24 mmol/L (22.0-30.0); Chloride 104 mmol/L (98-107); Chol/HDL Ratio 5.5 (1-3.5); Cholesterol 183 mg/dl (140-200); Estimated Glomerular Filt Rate 83 ml/min (>60); GFR (African American) 101 ML/MIN (>60); Globulin 2.9 g/dL (1.3-3.2); Glucose 116 mg/dl (74-100); HDL Cholesterol 33 mg/dl (40-60); Sodium 141 mmol/L (136-145); Total Protein,Serum 7.4 g/dl (6.3-8.2); Triglycerides 191 mg/dl (30-150); VLDL Cholesterol 38 mg/dL (0-40)
[2024-03-03 21:00] LABS: Direct LDL Cholesterol 107.42 mg/dL (100-129)
[2024-03-03 21:05] LABS: 25-OH Vitamin D, Total 38.7 ng/mL (30-100)
[2024-03-03 21:13] LABS: Hemoglobin A1C 5.6 % (4.0-6.0)
[2024-03-03 21:21] LABS: Thyroid Stimulating Hormone 1.48 uIU/mL (0.465-4.68)
== END 2024-03-03 23:59 | disposition home or self-care (01) ==
LOC: LAB.DROPOF 03-04 09:21
PROVIDERS: PCP Family Medicine; Visit Provider Family Medicine
DX: R03.0 Elevated blood-pressure reading, without diagnosis of hypertension (principal); I10 Essential (primary) hypertension; E55.9 Vitamin D deficiency, unspecified; E07.9 Disorder of thyroid, unspecified; K21.9 Gastro-esophageal reflux disease without esophagitis; R73.09 Other abnormal glucose
CPT/HCPCS: 80053; 80061; 82306; 83036; 84443; 85025

== ENCOUNTER 2024-05-12 14:42 | Outpatient (CLI) | payer MEDICARE, OTHER, SELFPAY ==
[2024-05-12 15:06] LABS: Basophils % 0.5 % (0.1-2.0); Eosinophils # 0.1 K/mm3 (0.0-0.4); Eosinophils % 1.5 % (0.1-12.0); Hematocrit 42.3 % (42.0-52.0); Hemoglobin 13.8 g/dL (14.1-18.0); Lymphocytes # 1.9 K/mm3 (0.7-4.5); Lymphocytes % 39.5 % (10-50); Mean Corpuscular HGB Conc 32.6 g/dL (31.8-35.4); Mean Corpuscular Hemoglobin 28.4 pg (27.0-31.2); Mean Corpuscular Volume 87.3 fl (80-94); Mean Platelet Volume 9.1 fl (7.4-10.4); Monocytes # 0.4 K/mm3 (0.1-1.0); Monocytes % 7.5 % (1.7-9.3); Neutrophils # 2.4 K/mm3 (1.8-7.8); Platelet Count 253 K/mm3 (142-424); Red Blood Count 4.85 M/mm3 (4.60-6.20); Red Cell Distribution Width 14.5 % (11.5-17.5); White Blood Count 4.8 K/mm3 (4.8-10.8)
[2024-05-12 15:47] LABS: Alanine Aminotransferase 59 U/L (12-78); Albumin Level 4.3 g/dl (3.5-5.0); Alkaline Phosphatase 60 U/L (38-126); Anion Gap 9.7 mEq/L (5-15); Aspartate Amino Transferase 41 U/L (17-59); Bilirubin,Direct 0.2 mg/dl (0.0-0.4); Bilirubin,Indirect 0.3 mg/dL (0.0-0.9); Bilirubin,Total 0.5 mg/dl (0.2-1.3); Bilirubin,Unconjugated 0.3 mg/dL (0.0-1.1); Blood Urea Nitrogen 9 mg/dl (9-20); Calcium 9.2 mg/dl (8.4-10.2); Carbon Dioxide 26 mmol/L (22.0-30.0); Chloride 109 mmol/L (98-107); Chol/HDL Ratio 5.3 (1-3.5); Cholesterol 170 mg/dl (140-200); Estimated Glomerular Filt Rate 94 ml/min (>60); GFR (African American) 114 ML/MIN (>60); Glucose 101 mg/dl (74-100); HDL Cholesterol 32 mg/dl (40-60); Potassium 3.7 mmoL/L (3.5-5.1); Sodium 141 mmol/L (136-145); Total Protein,Serum 7.4 g/dl (6.3-8.2); Triglycerides 291 mg/dl (30-150); VLDL Cholesterol 58 mg/dL (0-40)
[2024-05-12 15:58] LABS: Direct LDL Cholesterol 103.77 mg/dL (100-129)
[2024-05-12 16:06] LABS: Free T4 (Free Thyroxine) 1.01 ng/dl (0.78-2.19)
[2024-05-12 16:21] LABS: Thyroid Stimulating Hormone 1.28 uIU/mL (0.465-4.68)
== END 2024-05-12 23:59 | disposition home or self-care (01) ==
LOC: LAB 14:45
PROVIDERS: PCP Family Medicine; Visit Provider Internal Medicine
DX: I10 Essential (primary) hypertension (principal); R07.89 Other chest pain
CPT/HCPCS: 36415; 80048; 80061; 80076; 84439; 84443; 85025

== ENCOUNTER 2024-05-13 11:01 | Emergency (ER) | payer MEDICARE, OTHER, SELFPAY ==
[2024-05-13] VITALS (7 sets, daily range): BP systolic 125–148; BP diastolic 66–94; PULSE 56–69; RESP 14–18; TEMP 36.7–36.9; O2SAT 96–98; BMI 35.9
--- NOTE | 2024-05-13 11:11 | CT_ITS ---
FINAL REPORT TECHNIQUE: Thin section axial CT images were obtained through the neck after intravenous contrast administration. Coronal and sagittal reformats were also obtained. This study was performed with techniques to keep radiation doses as low as reasonably achievable (ALARA). Individualized dose reduction techniques using automated exposure control or adjustment of mA and/or kV according to the patient''s size were employed. CLINICAL HISTORY: L neck pain FINDINGS: The nasopharynx, oropharynx, hypopharynx and larynx are unremarkable. There is a retention cyst or polyp in the right maxillary sinus. Multiple small bilateral neck nodes are identified. There is no mass or abnormal fluid collection. The visualized sinuses are clear. There is no acute osseous abnormality. IMPRESSION: No acute process. Reviewed, Interpreted and Dictated by Garcia Melendez III, MD Transcribed by Ailyn Trinidad Authenticated and [facility]
--- NOTE | 2024-05-13 11:12 | ED_ITS ---
Discharge Plan Disposition Patient Disposition: Home, Self-Care Condition: Good Prescriptions Prescriptions: No Action ciprofloxacin-dexamethasone [Ciprodex] 0.3-0.1 % drops,suspension 4 drp otic (ear) BID 5 Days Qty: 7.5 0RF amlodipine [Norvasc] 10 mg tablet 10 mg PO DAILY Qty: 90 3RF carvedilol [Coreg] 12.5 mg tablet 12.5 mg PO BID Qty: 180 3RF Rx Instructions: must administer with a meal/food lisinopril 40 mg tablet 40 mg PO DAILY Qty: 90 3RF omeprazole 20 mg capsule,delayed release(DR/EC) 20 mg PO BID Qty: 180 3RF Referrals Follow up/Referrals: Anna Rios APRN [Primary Care Provider] - See instructions Activity Restrictions/Add. Instructions Additional Instructions/Restrictions: You were evaluated in the emergency department today. At this time, your workup is reassuring. Please follow-up closely outpatient with cardiology as well as with your primary care provider. Return to the emergency department right away for new or worsening symptoms Clinical Impressions Clinical Impression: Neck pain Stand Alone Forms Stand Alone Forms: Work/School Release Instructions Patient Instructions: DI for Neck Pain Print Language Print Language: [place] Discharge ED Provider: Cici Doshi General Adult HPI General Chief complaint: Recheck/Abnormal Lab/Rx Stated complaint: left neck pain Time Seen by Provider: 05/13/24 11:04 Mode of Arrival: Ambulatory Source of Information: Patient Limitations: No Limitations Description of Symptoms (Recalled from ER Triage Doc. by RN): left part of neck swollen and starting to become painful History of Present Illness HPI narrative: This patient is a 38-year-old male with a history of atypical chest pain, hypertension, and GERD presenting to the emergency department for evaluation with concern for left-sided neck pain. Patient reports that he has been having this for a couple of days. He states that it feels like his neck is full from the inside and that there is a pressure. Today became more painful, and he was told by cardiology, who he saw 05/12/2024, that if he gets worse to come to the ED. He reports that they are wanting to do a CCTA on him. He notes that aside from the left neck pain, he is not having any other symptoms at this time. No fevers, chills, trismus, drooling, difficulty swallowing, difficulty breathing, or other concerns. He also denies any recent dental pain or swelling. Related Data Previous Rx's ?Medication ?Instructions ?Recorded amlodipine 10 mg tablet (Norvasc) 10 mg PO DAILY #90 tabs 09/03/23 carvedilol 12.5 mg tablet (Coreg) 12.5 mg PO BID #180 tabs 09/03/23 lisinopril 40 mg tablet 40 mg PO DAILY #90 tabs 09/03/23 omeprazole 20 mg capsule,delayed 20 mg PO BID GERD #180 caps 09/03/23 release ciprofloxacin 0.3 %-dexamethasone 4 drp otic (ear) BID 5 days #7.5 mL 03/03/24 0.1 % ear drops,suspension (Ciprodex) Allergies Allergy/AdvReac Type Severity Reaction Status Date / Time erythromycin base Allergy Mild Verified 05/12/24 13:53 [ERYTHROMYCIN BASE] [facility] Disclaimer: The information contained in this section may have been updated after the patient was seen, as this information can be updated by other users. 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 current occupational status: other Travel in the last 8 weeks: None housing: apartment ROS Obtained: Yes All systems reviewed & no additional complaints except as documented Physical Exam General General appearance: alert and in no apparent distress Head Head exam: atraumatic and normocephalic Eye Eye exam: Present normal appearance, PERRL and EOMI ENT ENT exam: Present normal exam, normal oropharynx, mucous membranes moist and normal external ear exam Neck Neck exam: Present normal inspection, full ROM and trachea midline; Absent tenderness Chest Chest inspection: Present normal inspection and symmetric chest wall rise; Absent tenderness Respiratory Respiratory exam: Present normal lung sounds bilaterally; Absent respiratory distress, wheezes, stridor or accessory muscle use Cardiovascular Cardiovascular exam: Present regular rate and normal rhythm Abdominal Exam Abdominal exam: Present soft; Absent distention, tenderness or guarding Extremities Exam Extremities exam: Present normal inspection, full ROM and normal capillary refill; Absent tenderness or edema Back Exam Back exam: Present normal inspection and full ROM; Absent tenderness Neurological Exam Neurological exam: Present alert, oriented X3, CN II-XII intact and normal gait; Absent motor sensory deficit Psychiatric Psychiatric exam: Present normal affect and normal mood Skin Skin exam: Present warm and dry Medical Decision Making Medical Records Medical records reviewed: Yes I reviewed the patient's medical records. Ariel Inquiry Pt receiving controlled substance: No Vital Signs: 05/13/24 11:03 05/13/24 11:11 05/13/24 11:30 Temperature 98.4 F Temperature Source Oral Pulse Rate 62 Pulse Rate [Right] 63 Respiratory Rate 18 18 Blood Pressure 125/66 Blood Pressure [Right Arm] 148/94 H Blood Pressure Mean [Right Arm] 112 02 Sat by Pulse Oximetry 97 98 97 Oxygen Delivery Method Room Air Room Air 05/13/24 12:00 05/13/24 12:30 05/13/24 13:00 Temperature Temperature Source Pulse Rate 62 56 L 69 Pulse Rate [Right] Respiratory Rate 14 18 18 Blood Pressure 134/82 132/85 134/82 Blood Pressure [Right Arm] Blood Pressure Mean [Right Arm] 02 Sat by Pulse Oximetry 96 97 97 Oxygen Delivery Method Room Air Room Air Room Air 05/13/24 13:38 Temperature 98.1 F Temperature Source Pulse Rate 58 L Pulse Rate [Right] Respiratory Rate 18 Blood Pressure 139/87 Blood Pressure [Right Arm] Blood Pressure Mean [Right Arm] 02 Sat by Pulse Oximetry Oxygen Delivery Method Lab Data Lab results reviewed: Yes I reviewed the patient's lab results. Lab Results 05/13/24 11:15: WBC 4.7 L, RBC 4.86, Hgb 13.8 L, Hct 41.8 L, MCV 86.1, MCH 28.4, MCHC 33.0, RDW 14.4, Plt Count 247, MPV 9.1, Neut % (Auto) 53.8, Lymph % (Auto) 37.9, [place] % (Auto) 6.3, Eos % (Auto) 1.4, Baso % (Auto) 0.5, Neut # (Auto) 2.5, Lymph # (Auto) 1.8, [place] # (Auto) 0.3, Eos # (Auto) 0.1, Baso # (Auto) 0.0, Sodium 140, Potassium 3.4 L, Chloride 108 H, Carbon Dioxide 26, Anion Gap 9.4, BUN 10, Creatinine 0.90, Estimated Creat Clear 177, Estimated GFR 94, Est GFR ( Amer) 114, Glucose 124 H D, Calcium 9.0, Total Bilirubin 0.5, AST 46, ALT 68, Alkaline Phosphatase 59, Troponin I < 0.01, Total Protein 7.2, Albumin 4.2, Globulin 3.0, Albumin/Globulin Ratio 1.4 05/13/24 11:15 05/13/24 11:15 Orders (Tests/Meds): ED MEDICATIONS Discontinued Medications Generic Name Dose Route Start Last Admin Trade Name Freq PRN Reason Stop Dose Admin Iopamidol 75 ml 05/13/24 11:29 05/13/24 11:30 Iopamidol-370 (76%);100ml Bottle IV 05/13/24 11:30 75 ml ONCE ONE Administration Ketorolac Tromethamine 15 mg 05/13/24 11:18 05/13/24 11:37 Ketorolac 30mg/Ml Vial IV 05/13/24 11:19 15 mg ONCE ONE Administration Potassium Chloride 40 meq 05/13/24 11:39 05/13/24 11:53 Potassium Chloride 20meq Tab PO 05/13/24 11:40 40 meq ONCE ONE Administration Sodium Chloride 10 ml 05/13/24 11:29 05/13/24 11:30 Sodium Chloride 0.9% 10ml Syr (Rad Only) IV 05/13/24 11:30 10 ml ONCE ONE Administration ORDERS Category Date Time Status CT soft tissue neck w con Stat Cat Scan 05/13/24 11:11 Completed Complete Blood Count Auto Diff Stat Lab 05/13/24 11:15 Completed Comprehensive Metabolic Panel Stat Lab 05/13/24 11:15 Completed Trop I [Troponin I] Stat Lab 05/13/24 11:15 Completed ECG Data Tracing #1: I reviewed this ECG and interpreted as documented below: Sinus bradycardia with a ventricular rate of [address] changes concerning for ischemia. Normal axis and intervals. ECG initial impression date: 05/13/24 ECG initial impression time: 11:23 Medical Decision Narrative: In summary, this patient is a 38-year-old male presenting to the Emergency Department for evaluation of atraumatic left neck pain. Differential diagnoses considered include but are not limited to lymphadenitis, sialoadenitis, musculoskeletal strain/sprain, atypical chest pain. Ruling out the most morbid conditions drove assessment. It should be noted patient's history includes hypertension which may or may not be at goal therapy. This complicates all aspects of care by increasing patient's risk for morbidity. I reviewed patient's past medical records and noted previous cardiology evaluation yesterday. They want to do a CCTA. They felt that his heart sensation radiated from his chest into his neck and arm, so they are concerned for cardiac etiology of the symptoms. On exam, the patient is lying in bed in no acute distress with normal vital signs on cardiac telemetry. No appreciable neck swelling, tenderness to palpation, meningismus, or other concerns. He is well-appearing with no trismus, drooling, oropharyngeal lesions. Workup included CBC, CMP, troponin, EKG, and CT soft tissue neck with IV contrast. Patient was given IV Toradol for symptomatic improvement. I independently interpreted CT prior to the radiologist read and noted no obvious abscess. Please see their read for final interpretation. Labs were obtained that demonstrated negative troponin and no significant leukocytosis. On reassessment with the patient is resting comfortably with reassuring exam. Ultimately, feel we have excluded life-threatening pathology as a cause of his symptoms. He already has close follow-up with cardiology as well as a CCTA arranged. Patient was discharged with very strict return precautions. Critical Care Critical Care Time Critical Care Time: No
--- NOTE | 2024-05-13 11:21 | ECG_ITS ---
APPROVED REPORT Exam: Resting ECG HR:58 bpm ECG Measurements Heart Rate 58 AXES MA 168 P 28 QRSd 80 QRS 4 QT 408 T 44 QTc 404 Conclusion SINUS BRADYCARDIA BORDERLINE ECG Electronically signed by : MILY HOPKINS, 05/13/2024 17:03:52
[2024-05-13] MEDS: IOPAMIDOL-370 (76%);100ML BOTTLE 75 ML IV (11:30)
[2024-05-13] MEDS: SODIUM CHLORIDE 0.9% 10ML SYR (RAD ONLY) 10 ML IV (11:30)
[2024-05-13 11:31] LABS: Basophils % 0.5 % (0.1-2.0); Eosinophils # 0.1 K/mm3 (0.0-0.4); Eosinophils % 1.4 % (0.1-12.0); Hematocrit 41.8 % (42.0-52.0); Hemoglobin 13.8 g/dL (14.1-18.0); Lymphocytes # 1.8 K/mm3 (0.7-4.5); Lymphocytes % 37.9 % (10-50); Mean Corpuscular Hemoglobin 28.4 pg (27.0-31.2); Mean Corpuscular Volume 86.1 fl (80-94); Mean Platelet Volume 9.1 fl (7.4-10.4); Monocytes # 0.3 K/mm3 (0.1-1.0); Monocytes % 6.3 % (1.7-9.3); Neutrophils # 2.5 K/mm3 (1.8-7.8); Neutrophils % 53.8 % (37.0-80.0); Platelet Count 247 K/mm3 (142-424); Red Blood Count 4.86 M/mm3 (4.60-6.20); Red Cell Distribution Width 14.4 % (11.5-17.5); White Blood Count 4.7 K/mm3 (4.8-10.8)
[2024-05-13 11:36] LABS: Alanine Aminotransferase 68 U/L (12-78); Albumin Level 4.2 g/dl (3.5-5.0); Albumin/Globulin Ratio 1.4 (1.1-1.8); Alkaline Phosphatase 59 U/L (38-126); Anion Gap 9.4 mEq/L (5-15); Aspartate Amino Transferase 46 U/L (17-59); Bilirubin,Total 0.5 mg/dl (0.2-1.3); Blood Urea Nitrogen 10 mg/dl (9-20); Carbon Dioxide 26 mmol/L (22.0-30.0); Chloride 108 mmol/L (98-107); Creatinine Clearance Estimated 177 mL/min (50-200); Estimated Glomerular Filt Rate 94 ml/min (>60); GFR (African American) 114 ML/MIN (>60); Glucose 124 mg/dl (74-100); Potassium 3.4 mmoL/L (3.5-5.1); Sodium 140 mmol/L (136-145); Total Protein,Serum 7.2 g/dl (6.3-8.2)
[2024-05-13] MEDS: KETOROLAC 30MG/ML VIAL 15 MG IV (11:37)
[2024-05-13] MEDS: POTASSIUM CHLORIDE 20MEQ TAB 40 MEQ PO (11:53)
[2024-05-13 12:02] LABS: Troponin I < 0.01 ng/ml (0.00-0.034)
--- NOTE | 2024-05-13 12:47 | PC.NURSE ---
Called Radiology to see about ct read. States it is locked now and being read, no prelim available.
== END 2024-05-13 13:39 | disposition home or self-care (01) ==
PROVIDERS: Emergency Provider Emergency Medicine; PCP Family Medicine
DX: M54.2 Cervicalgia (principal); R00.1 Bradycardia, unspecified
CPT/HCPCS: 70491; 80053; 84484; 85025; 93005; 96374; 99284; J1885; Q9967

== ENCOUNTER 2024-05-19 11:52 | Outpatient (CLI) | payer MEDICARE, OTHER, SELFPAY ==
[2024-05-19] VITALS (7 sets, daily range): BP systolic 95–144; BP diastolic 59–91; PULSE 55–64; RESP 16; O2SAT 94–97; BMI 35.9
--- NOTE | 2024-05-19 11:53 | CT_ITS ---
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 A noncontrast coronary calcium scan was performed. A CT attenuation threshold of 130 Hounsfield units (HU) was used for the detection of calcium in contiguous voxels of 1 sq mm in area to be counted as individual lesions. Bolus tracking in the ascending aorta with a threshold of 180 HU was performed. Immediately afterwards, ECG synchronized cardiac CT was then performed from the cardiac base to apex using retrospective gating with ECG tube current modulation. A total of 85 mL of Isovue 370 mg/mL contrast medium was administered at 5 mL/sec followed by a saline flush using a biphasic injection protocol. A tube voltage of 120 KVp was used. The patient received the following medications prior to the cardiac CT. 0.8 mg of sublingual nitroglycerin The average heart rate at the time of acquisition was 57 bpm and regular. Image Reconstruction Transaxial images were reconstructed at 0.67 mm slide thickness. Data was reviewed interactively on an advanced workstation capable of 2 and 3-dimensional displays in all conventional reconstruction formats, including multiplanar reformations, maximum intensity projections, curved multiplanar reformations, and volume rendered reconstructions. When applicable, selected routine images describing the relevant coronary anatomy and pathology were saved and sent to PACS. Complications None Technical Quality Overall image quality was good. Coronary artery opacification was adequate. Total DLP (Dose-Length Product) is 1743.9 mGy-cm. The reported value represents the total of one or more individual components during the CT acquisition of this date and at this time, and as such, the same value may appear in more than one CT report depending on the interpreting/reporting physicians. COMPARISON None FINDINGS CT Coronary Calcium Scoring LMA (Left Main Artery) = 0 LAD (Left Anterior Descending) = 0 LCX (Left Coronary Circumflex) = 0 RCA (Right Coronary Artery) = 0 Total Calcium Score = 0 using the AJ-130 method. The interpretation of the calcium heart score is based on the following continuum*: 0 = no calcified plaque detected (risk of coronary artery disease is very low ??? less than 5%) 1-10 = calcium detected in extremely minimal levels (risk of coronary diseases is still low ??? less than 10%) 11-100 = mild levels of plaque detected with certainty (mild or minimal narrowing of heart arteries is likely) 101-400 = definite,at least moderate levels of plaque detected (relatively high risk of a heart attack within 3-5 years) >401-999 = extensive levels of plaque detected (high risk of heart attack, high levels of vascular disease are present, high likelihood of at least one significant coronary narrowing) *The calcium heart score quantifies the burden of coronary calcification/plaque in the coronary arteries. The calcium heart score is not able to evaluate the presence or burden of non-calcified (i.e. soft) plaque. There is no identifiable calcification in the aortic valve, mitral annulus or mitral valve, pericardium, or myocardium. Coronary CT Angiography The coronary arterial system is left dominant. Quantitative Stenosis Grading: Left Main (LM): The left main originates normally from the left sinus of Valsalva. The LM trifurcates into the left anterior descending artery, ramus intermedius, and left circumflex artery. The LM is patent with no evidence of atherosclerosis. Left Anterior Descending (LAD) and Diagonal Branches: The LAD gives off 3 diagonal branch(es). The LAD and its branches are patent with no evidence of atherosclerosis. There is no evidence of LAD-myocardial bridge. Ramus-intermedius (RI): The RI is patent. Left Circumflex (LCX) and Obtuse Marginals (OM): The LCX gives off 2 Obtuse Marginal (OM) branch(es). The LCX and its branches are patent with no evidence of atherosclerosis. Right Coronary Artery (RCA): The RCA originates normally from the right sinus of Valsalva. The RCA is a small caliber vessel. The RCA and its branches are patent with no evidence of atherosclerosis. Non-Coronary Cardiac Findings: Analysis of the left ventricular (LV) structure and function was performed after 3-D reconstruction of the LV from axial images, with user-corrected automatic contouring for assessment of LV volumes and user-defined reconstruction from oblique planes for measurement of 3-D cardiac structure and function. -The left ventricle systolic function is normal. -There is no left atrial appendage filling defect. Two right pulmonary veins and two left pulmonary veins drain normally into the left atrium. -No pericardial thickening or calcification. -Central and branch pulmonary arteries in the [id number] are unremarkable. -Thoracic aorta within the visualized thoracic aortic-branches in the [id number] is unremarkable. Extracardiac Structures No significant extra-cardiac findings. Note, however, that this study is focused on the cardiac findings. IMPRESSION -Absence of coronary calcification with an Agatston score = 0 using the AJ-130 method. -No evidence of significant flow-limiting atherosclerosis of the coronary arteries. -No evidence of coronary anomalies or myocardial bridges. -CAD-RADS 0. Management recommendations per ACC/AHA guidelines*, as clinically appropriate. *Recommendations: CAD RADS 0: Reassurance. Consider non-atherosclerotic causes of chest pain. CAD RADS 1: Consider non-atherosclerotic causes of chest pain. Consider preventive therapy and risk factor modification. CAD RADS 2: Consider non-atherosclerotic causes of chest pain. Consider preventive therapy and risk factor modification, particularly for patients with nonobstructive plaque in multiple segments. CAD RADS 3: Consider further functional testing. Consider symptom-guided anti-ischemic and preventive pharmacotherapy as well as risk factor modification per published guideline statements. CAD RADS 4A: Consider further functional testing or invasive coronary angiography with revascularization per published guideline statements. Consider symptom-guided anti-ischemic and preventive pharmacotherapy as well as risk factor modification per published guideline statements. CAD RADS 4B: Invasive coronary angiography recommended with revascularization per published guideline statements. Consider symptom-guided anti-ischemic and preventive pharmacotherapy as well as risk factor modification per published guideline statements. CAD RADS 5: Consider invasive angiography and/or viability assessment with revascularization per published guideline statements. Consider symptom-guided anti-ischemic and preventive pharmacotherapy as well as risk factor modification per published guideline statements. CRITICAL RESULT None COMMUNICATION Per this written report The coronary and cardiac findings of this CCTA were reviewed, reported, and signed by Alek Martínez MD (Crumb Packer) Conclusion Electronically signed by : Blanka Martínez MD 05/20/2024 13:06:48
[2024-05-19 12:33] LABS: Chloride 106 mmol/L (98-107); Sodium 138 mmol/L (136-145)
[2024-05-19 12:34] LABS: Potassium 3.5 mmoL/L (3.5-5.1)
[2024-05-19 12:36] LABS: Blood Urea Nitrogen 11 mg/dl (9-20); Creatinine Clearance Estimated 177 mL/min (50-200); Estimated Glomerular Filt Rate 94 ml/min (>60); GFR (African American) 114 ML/MIN (>60)
[2024-05-19 12:37] LABS: Anion Gap 10.5 mEq/L (5-15); Carbon Dioxide 25 mmol/L (22.0-30.0); Glucose 167 mg/dl (74-100)
[2024-05-19] MEDS: IOPAMIDOL-370 (76%);100ML BOTTLE 85 ML IV (13:26)
[2024-05-19] MEDS: SODIUM CHLORIDE 0.9% 10ML SYR (RAD ONLY) 10 ML IV (13:26)
[2024-05-19] MEDS: 0.9 % SODIUM CHLORIDE 50 ML VIAL IV (13:26)
== END 2024-05-19 13:40 | disposition home or self-care (01) ==
PROVIDERS: PCP Family Medicine; Visit Provider Internal Medicine
DX: I10 Essential (primary) hypertension (principal); R07.89 Other chest pain; Z82.49 Family history of ischemic heart disease and other diseases of the circulatory system
CPT/HCPCS: 75574; 80048; Q9967

== ENCOUNTER 2024-05-22 14:58 | Emergency (ER) | payer MEDICARE, OTHER, SELFPAY ==
[2024-05-22 14:58] VITALS: BP 138/79; PULSE 55; RESP 20; TEMP 37.1; O2SAT 98; BMI 33.9
--- NOTE | 2024-05-22 15:00 | PC.NURSE ---
DR HOPKINS AT BEDSIDE
[2024-05-22 15:04] VITALS: BP 121/70; BP 121/76; BP 122/66; PULSE 59; PULSE 61; PULSE 78
--- NOTE | 2024-05-22 15:04 | XR_ITS ---
PROCEDURE INFORMATION: Exam: XR Chest Exam date and time: 05/22/2024 3:15 PM Age: 38 years old Clinical indication: Other: Syncope TECHNIQUE: Imaging protocol: Radiologic exam of the chest. Views: 1 view. COMPARISON: CR XR CHEST PORTABLE 07/22/2022 3:56 PM FINDINGS: Lungs: Unremarkable. No consolidation. Pleural spaces: Unremarkable. No pleural effusion. No pneumothorax. Heart/Mediastinum: Unremarkable. No cardiomegaly. Bones/joints: Unremarkable. IMPRESSION: No acute findings.
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
--- NOTE | 2024-05-22 15:13 | ECG_ITS ---
APPROVED REPORT Exam: Resting ECG HR:60 bpm ECG Measurements Heart Rate 60 AXES MO 163 P 35 QRSd 87 QRS 19 QT 427 T 58 QTc 427 Conclusion SINUS RHYTHM NORMAL ECG Electronically signed by : MILY HOPKINS, 05/24/2024 23:40:23
--- NOTE | 2024-05-22 15:20 | PC.NURSE ---
XR AT BEDSIDE
[2024-05-22 15:45] LABS: Basophils % 0.4 % (0.1-2.0); Eosinophils # 0.1 K/mm3 (0.0-0.4); Eosinophils % 1.9 % (0.1-12.0); Hematocrit 41.7 % (42.0-52.0); Hemoglobin 13.9 g/dL (14.1-18.0); Lymphocytes # 1.6 K/mm3 (0.7-4.5); Lymphocytes % 25.6 % (10-50); Mean Corpuscular HGB Conc 33.4 g/dL (31.8-35.4); Mean Corpuscular Hemoglobin 28.8 pg (27.0-31.2); Mean Corpuscular Volume 86.3 fl (80-94); Mean Platelet Volume 7.2 fl (7.4-10.4); Monocytes # 0.4 K/mm3 (0.1-1.0); Monocytes % 6.1 % (1.7-9.3); Neutrophils # 4.1 K/mm3 (1.8-7.8); Platelet Count 258 K/mm3 (142-424); Red Blood Count 4.83 M/mm3 (4.60-6.20); Red Cell Distribution Width 14.4 % (11.5-17.5); White Blood Count 6.2 K/mm3 (4.8-10.8)
[2024-05-22] MEDS: LACTATED RINGERS 1000ML 1,000 ML 999 ML IV (15:45)
[2024-05-22 15:53] LABS: INR 0.95 (0.9-1.1); Prothrombin Time 10.7 seconds (10.1-12.5)
[2024-05-22 16:17] LABS: Albumin Level 4.6 g/dl (3.5-5.0); Chloride 105 mmol/L (98-107)
[2024-05-22 16:18] LABS: Potassium 3.3 mmoL/L (3.5-5.1); Sodium 139 mmol/L (136-145)
[2024-05-22 16:20] LABS: Alanine Aminotransferase 66 U/L (12-78); Albumin/Globulin Ratio 1.6 (1.1-1.8); Alkaline Phosphatase 72 U/L (38-126); Anion Gap 12.3 mEq/L (5-15); Aspartate Amino Transferase 45 U/L (17-59); Bilirubin,Total 0.8 mg/dl (0.2-1.3); Blood Urea Nitrogen 11 mg/dl (9-20); Calcium 9.3 mg/dl (8.4-10.2); Carbon Dioxide 25 mmol/L (22.0-30.0); Creatine Kinase 134 U/L (55-170); Creatinine Clearance Estimated 133 mL/min (50-200); Estimated Glomerular Filt Rate 67 ml/min (>60); GFR (African American) 82 ML/MIN (>60); Globulin 2.9 g/dL (1.3-3.2); Glucose 118 mg/dl (74-100); Lipase 51 U/L (23-300); Phosphorous 3.9 mg/dl (2.5-4.5); Total Protein,Serum 7.5 g/dl (6.3-8.2)
[2024-05-22 16:21] LABS: Magnesium 2.2 mg/dl (1.6-2.3)
[2024-05-22] MEDS: POTASSIUM CHLORIDE 20MEQ TAB 40 MEQ PO (16:31)
[2024-05-22 16:44] LABS: T4 (Thyroxine) 10.2 ug/dl (5.53-11.0)
[2024-05-22 16:45] LABS: Troponin I < 0.01 ng/ml (0.00-0.034)
[2024-05-22 16:57] LABS: Thyroid Stimulating Hormone 0.48 uIU/mL (0.465-4.68)
[2024-05-22 17:07] VITALS: BP 123/80; PULSE 68; RESP 20; TEMP 36.6; O2SAT 98
== END 2024-05-22 17:08 | disposition home or self-care (01) ==
PROVIDERS: Emergency Provider Emergency Medicine; PCP Physician Assistant
DX: R55 Syncope and collapse (principal); E87.6 Hypokalemia; R11.0 Nausea; I10 Essential (primary) hypertension; K21.9 Gastro-esophageal reflux disease without esophagitis; F17.210 Nicotine dependence, cigarettes, uncomplicated
CPT/HCPCS: 71045; 80053; 82550; 83690; 83735; 84100; 84436; 84443; 84484; 85025; 85378; 85610; 93005; 96360; 99285; J7120

== ENCOUNTER 2024-08-02 15:16 | Emergency (ER) | payer MEDICARE, OTHER, SELFPAY ==
[2024-08-02 15:18] VITALS: BP 158/96; PULSE 86; RESP 20; TEMP 36.7; O2SAT 97; BMI 33.5
[2024-08-02 15:30] VITALS: BP 131/87; PULSE 87; O2SAT 97
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
--- NOTE | 2024-08-02 15:43 | PC.NURSE ---
Patient taken to radiology
[2024-08-02] MEDS: IBUPROFEN 400 MG TABLET 800 MG PO (15:49)
[2024-08-02] MEDS: ACETAMINOPHEN 500MG TAB 1000 MG PO (15:50)
--- NOTE | 2024-08-02 16:11 | PC.NURSE ---
Patient is back from Radiology
[2024-08-02 16:57] VITALS: BP 136/89; PULSE 77; RESP 18; TEMP 36.6; O2SAT 100
== END 2024-08-02 16:58 | disposition home or self-care (01) ==
PROVIDERS: Emergency Provider Emergency Medicine; PCP Internal Medicine
DX: M48.02 Spinal stenosis, cervical region (principal); S00.12XA Contusion of left eyelid and periocular area, initial encounter; M25.512 Pain in left shoulder; G89.11 Acute pain due to trauma; M54.9 Dorsalgia, unspecified; Y04.0XXA Assault by unarmed brawl or fight, initial encounter; Y93.9 Activity, unspecified; Y92.89 Other specified places as the place of occurrence of the external cause
CPT/HCPCS: 70450; 70486; 71046; 72125; 72128; 73030; 99284

== ENCOUNTER 2024-11-18 12:38 | Outpatient (CLI) | payer MEDICARE, OTHER, SELFPAY ==
--- NOTE | 2024-11-18 12:42 | XR_ITS ---
FINAL REPORT CLINICAL HISTORY: thumb pain COMPARISON: None FINDINGS: Three views of the left hand show no evidence of acute displaced fracture or dislocation of the visualized bony architecture. The joint spaces appear normal. IMPRESSION: Unremarkable exam. Reviewed, Interpreted and Dictated by Sadaf Peraza MD Transcribed by Amalia Severino Authenticated and [facility]
--- NOTE | 2024-11-18 12:42 | XR_ITS ---
FINAL REPORT CLINICAL HISTORY: thumb pain COMPARISON: None FINDINGS: Three views of the right hand show no evidence of acute displaced fracture or dislocation of the visualized bony architecture. There is mild degenerative change of the 1st carpometacarpal joint. Remaining joints are unremarkable. There is no evidence of bony erosion. IMPRESSION: Mild degenerative changes 1st carpometacarpal joint. Reviewed, Interpreted and Dictated by Sadaf Peraza MD Transcribed by Amalia Severino Authenticated and [facility]
--- NOTE | 2024-11-18 12:42 | XR_ITS ---
FINAL REPORT CLINICAL HISTORY: right wrist pain COMPARISON: None FINDINGS: RIGHT WRIST THREE VIEW FINDINGS: Three views show no evidence of an acute, displaced fracture or dislocation of the visualized bony architecture. The joint spaces appear normal. IMPRESSION: Unremarkable exam. Reviewed, Interpreted and Dictated by Sadaf Peraza MD Transcribed by Amalia Severino Authenticated and [facility]
== END 2024-11-18 23:59 | disposition home or self-care (01) ==
LOC: RAD 12:39
PROVIDERS: PCP Family Medicine; Visit Provider Physician Assistant
DX: M25.531 Pain in right wrist (principal); M79.644 Pain in right finger(s); M79.645 Pain in left finger(s)
CPT/HCPCS: 73110; 73130

== ENCOUNTER 2024-12-11 16:38 | Emergency (ER) | payer MEDICARE, OTHER, SELFPAY ==
--- NOTE | 2024-12-11 16:45 | ECG_ITS ---
APPROVED REPORT Exam: Resting ECG HR:63 bpm ECG Measurements Heart Rate 63 AXES KS 156 P 46 QRSd 90 QRS 63 QT 431 T 27 QTc 439 Conclusion SINUS RHYTHM NORMAL ECG Electronically signed by : DORI CARRASCO, 12/11/2024 23:27:51
[2024-12-11 16:47] VITALS: BP 133/82; PULSE 68; RESP 18; TEMP 36.8; O2SAT 98; BMI 30.2
[2024-12-11] MEDS: MECLIZINE 25MG TABLET 25 MG PO (16:58)
[2024-12-11 17:00] VITALS: BP 141/87; PULSE 67; RESP 17; O2SAT 98
--- NOTE | 2024-12-11 17:00 | HMH.EDGENADL ---
Discharge Plan Disposition Patient Disposition: Home, Self-Care Condition: Good Prescriptions Prescriptions: New meclizine 25 mg tablet 25 mg PO BID PRN (Reason: dizziness) Qty: 7 0RF No Action Ubrelvy 100 mg tablet 100 mg PO .COMPLEX Qty: 12 1RF Rx Instructions: 100 mg orally Take 1 with onset of headache, may repeat in 2 hours without relief up to 2 per 24 hours; amlodipine [Norvasc] 10 mg tablet 10 mg PO DAILY Qty: 90 3RF lisinopril 40 mg tablet 40 mg PO DAILY Qty: 90 3RF omeprazole 20 mg capsule,delayed release(DR/EC) 20 mg PO BID Qty: 180 3RF carvedilol [Coreg] 12.5 mg tablet 12.5 mg PO BID Qty: 180 3RF Rx Instructions: must administer with a meal/food celecoxib [Celebrex] 200 mg capsule 200 mg PO DAILY Qty: 30 2RF Referrals Follow up/Referrals: Anna Rios APRN [Primary Care Provider] - See instructions Activity Restrictions/Add. Instructions Additional Instructions/Restrictions: Follow-up with PCP If symptoms return or worsen return Do not drive or operate heavy machinery while taking medications Clinical Impressions Clinical Impression: Vertigo Instructions Patient Instructions: Vertigo Print Language Print Language: Yemeni Discharge ED Provider: Pool Rain Adult HPI <Fernanda Carson ([facility])THEA - Last Filed: 12/11/24 17:51> General Chief complaint: Dizziness Stated complaint: Lightheaded,nausea Time Seen by Provider: 12/11/24 16:51 Mode of Arrival: Ambulatory Source of Information: Patient Description of Symptoms (Recalled from ER Triage Doc. by RN): Patient presents today for dizziness and lightheaded History of Present Illness HPI narrative: 39-year-old male presents for dizziness and lightheaded. Patient states prior to arrival he was feeling dizzy and lightheaded worse with driving home. Patient states dizziness and lightheadedness was worse with sudden movements or changing positions. Related Data Previous Rx's ?Medication ?Instructions ?Recorded amlodipine 10 mg tablet (Norvasc) 10 mg PO DAILY #90 tabs 09/20/24 carvedilol 12.5 mg tablet (Coreg) 12.5 mg PO BID #180 tabs 09/20/24 lisinopril 40 mg tablet 40 mg PO DAILY #90 tabs 09/20/24 omeprazole 20 mg capsule,delayed 20 mg PO BID GERD #180 caps 09/20/24 release ubrogepant 100 mg tablet (Ubrelvy) 100 mg PO .COMPLEX #12 tabs 11/17/24 celecoxib 200 mg capsule (Celebrex) 200 mg PO DAILY Arthritis #30 caps 11/30/24 meclizine 25 mg tablet 25 mg PO BID PRN dizziness #7 tabs 12/11/24 Allergies Allergy/AdvReac Type Severity Reaction Status Date / Time erythromycin base Allergy Mild Verified 11/18/24 13:41 (ERYTHROMYCIN BASE) [facility] <Fernanda Carson ([facility]), [employer] CENTER SPECIALIST - Last Filed: 12/11/24 17:51> [facility] Disclaimer: The information contained in this section may have been updated after the patient was seen, as this information can be updated by other users. 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: No Contact w/someone who lives/traveled outside US past 30 days?: No Exposure to someone with infectious disease in past 14 days?: No Do you have a fever (greater than 100.4 F or 38 C)?: No Have you tested positive for COVID-19: No Exposed to someone with COVID-19 in past 14 days?: No Do you have a sore throat?: No Do you have a cough?: No Do you have any weakness?: Yes Do you have any diarrhea?: No Are you experiencing any unusual bleeding?: No Do you have any muscle aches/pain?: No Do you have any abdominal pain?: No Are you experiencing loss of taste or smell?: No Other 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 Have you received the Flu Vaccine for this season: No Have you received the Pneumonia Vaccine: No <Kimmylorettarebeca Masonamelia ([facility]), - Last Filed: 12/11/24 17:51> ROS Obtained: Yes Systems reviewed as appropriate & no additional complaints except as documented Constitutional Constitutional: Reports system reviewed and no additional complaints, except as documented and Reports as per HPI ENT Ears, Nose, Mouth, and Throat: Reports dizziness Neurologic Neurologic: Reports system reviewed and no additional complaints, except as documented, Reports as per HPI and Reports dizziness Physical Exam <Kimmyelena Carson ([facility]), [employer] CENTER SPECIALIST - Last Filed: 12/11/24 17:51> General General appearance: alert and in no apparent distress Eye Eye exam: Present normal appearance and PERRL ENT ENT exam: Present normal exam Respiratory Respiratory exam: Present normal lung sounds bilaterally Cardiovascular Cardiovascular exam: Present regular rate and normal rhythm Neurological Exam Neurological exam: Present alert, oriented X3, CN II-XII intact and normal gait Skin Skin exam: Present warm and intact Medical Decision Making <Kimmyelena Carson ([facility]), [employer] CENTER SPECIALIST - Last Filed: 12/11/24 17:51> Medical Records Medical records reviewed: Yes I reviewed the patient's medical records. Screening: Per USPSTF and CDC recommendations, given the prevalence of disease in our region, it is our hospital?s policy to screen for HIV and viral Hepatitis for all patients aged 18 and over and those with ongoing risk factors. Ariel Inquiry Pt receiving controlled substance: No Vital Signs: 12/11/24 16:47 12/11/24 17:00 12/11/24 17:30 Temperature 98.3 F Temperature Source Oral Pulse Rate 67 76 Pulse Rate [Right Radial] 68 Respiratory Rate 18 17 15 Blood Pressure 141/87 H 135/76 Blood Pressure [Right Arm] 133/82 Blood Pressure Mean 107 Blood Pressure Mean [Right Arm] 99 Blood Pressure Source [Right Arm] Automatic Cuff Blood Pressure Position [Right Arm] Sitting 02 Sat by Pulse Oximetry 98 98 98 12/11/24 17:52 Temperature 98 F Temperature Source Pulse Rate 67 Pulse Rate [Right Radial] Respiratory Rate 18 Blood Pressure 141/87 H Blood Pressure [Right Arm] Blood Pressure Mean Blood Pressure Mean [Right Arm] Blood Pressure Source [Right Arm] Blood Pressure Position [Right Arm] 02 Sat by Pulse Oximetry Lab Data Lab results reviewed: Yes I reviewed the patient's lab results. Lab Results 12/11/24 17:02: WBC 5.5, RBC 4.80, Hgb 13.5 L, Hct 39.0 L, MCV 81.3, MCH 28.1, MCHC 34.6, RDW 12.7, Plt Count 219, MPV 10.1, Neut % (Auto) 60.2, Lymph % (Auto) 30.6, Meeker % (Auto) 7.7, Eos % (Auto) 1.1, Baso % (Auto) 0.2, Neut # (Auto) 3.3, Lymph # (Auto) 1.7, Meeker # (Auto) 0.4, Eos # (Auto) 0.1, Baso # (Auto) 0.0, Sodium 138, Potassium 3.5, Chloride 104, Carbon Dioxide 24, Anion Gap 13.5, BUN 7 L, Creatinine 0.90, Estimated Creat Clear 164, Estimated GFR 93, Est GFR ( Amer) 113, Glucose 147 H, Calcium 8.9, Total Bilirubin 0.8, AST 40, ALT 46, Alkaline Phosphatase 71, Total Protein 8.0, Albumin 4.5, Globulin 3.5 H, Albumin/Globulin Ratio 1.3 12/11/24 17:02 12/11/24 17:02 Orders (Tests/Meds): ED MEDICATIONS Discontinued Medications Generic Name Dose Route Start Last Admin Trade Name Freq PRN Reason Stop Dose Admin Meclizine HCl 25 mg 12/11/24 16:51 12/11/24 16:58 Meclizine 25mg Tablet PO 12/11/24 16:52 25 mg ONCE ONE Administration ORDERS Category Date Time Status CBC w/Auto Diff [Complete Blood Count Auto Diff] Stat Lab 12/11/24 17:02 Completed CMP [Comprehensive Metabolic Panel] Stat Lab 12/11/24 17:02 Completed Medical Decision Narrative: In summary patient is a 39-year-old male who presents to the emergency department for evaluation of dizziness and lightheaded. Patient is hemodynamically stable upon arrival, afebrile. Unremarkable physical exam. Differential diagnosis includes vertigo. Initial workup will be conducted with labs. Initial inventions include meclizine. Initial workup reviewed by ne [email or web address] hallpike maneuver performed. Upon repeat evaluation after meclizine all of symptoms are relieved patient's sitting in the stretcher with no complaints. Given this patient appropriate for discharge at this time will discharge home with a prescription for meclizine and close follow-up with PCP <Pool Rain MD - Last Filed: 12/12/24 19:19> Vital Signs: 12/11/24 16:47 12/11/24 17:00 12/11/24 17:30 Temperature 98.3 F Temperature Source Oral Pulse Rate 67 76 Pulse Rate [Right Radial] 68 Respiratory Rate 18 17 15 Blood Pressure 141/87 H 135/76 Blood Pressure [Right Arm] 133/82 Blood Pressure Mean 107 Blood Pressure Mean [Right Arm] 99 Blood Pressure Source [Right Arm] Automatic Cuff Blood Pressure Position [Right Arm] Sitting 02 Sat by Pulse Oximetry 98 98 98 12/11/24 17:52 Temperature 98 F Temperature Source Pulse Rate 67 Pulse Rate [Right Radial] Respiratory Rate 18 Blood Pressure 141/87 H Blood Pressure [Right Arm] Blood Pressure Mean Blood Pressure Mean [Right Arm] Blood Pressure Source [Right Arm] Blood Pressure Position [Right Arm] 02 Sat by Pulse Oximetry Lab Data Lab Results 12/11/24 17:02: WBC 5.5, RBC 4.80, Hgb 13.5 L, Hct 39.0 L, MCV 81.3, MCH 28.1, MCHC 34.6, RDW 12.7, Plt Count 219, MPV 10.1, Neut % (Auto) 60.2, Lymph % (Auto) 30.6, Meeker % (Auto) 7.7, Eos % (Auto) 1.1, Baso % (Auto) 0.2, Neut # (Auto) 3.3, Lymph # (Auto) 1.7, Meeker # (Auto) 0.4, Eos # (Auto) 0.1, Baso # (Auto) 0.0, Sodium 138, Potassium 3.5, Chloride 104, Carbon Dioxide 24, Anion Gap 13.5, BUN 7 L, Creatinine 0.90, Estimated Creat Clear 164, Estimated GFR 93, Est GFR ( Amer) 113, Glucose 147 H, Calcium 8.9, Total Bilirubin 0.8, AST 40, ALT 46, Alkaline Phosphatase 71, Total Protein 8.0, Albumin 4.5, Globulin 3.5 H, Albumin/Globulin Ratio 1.3 Orders (Tests/Meds): ED MEDICATIONS Discontinued Medications Generic Name Dose Route Start Last Admin Trade Name Lesli PRN Reason Stop Dose Admin Meclizine HCl 25 mg 12/11/24 16:51 12/11/24 16:58 Meclizine 25mg Tablet PO 12/11/24 16:52 25 mg ONCE ONE Administration ORDERS Category Date Time Status CBC w/Auto Diff [Complete Blood Count Auto Diff] Stat Lab 12/11/24 17:02 Completed CMP [Comprehensive Metabolic Panel] Stat Lab 12/11/24 17:02 Completed Medical Decision Narrative: In summary patient is a 39-year-old male who presents to the emergency department for evaluation of dizziness and lightheaded. Patient is hemodynamically stable upon arrival, afebrile. Unremarkable physical exam. Differential diagnosis includes vertigo. Initial workup will be conducted with labs. Initial inventions include meclizine. Initial workup reviewed by ne [email or web address] hallpike maneuver performed. Upon repeat evaluation after meclizine all of symptoms are relieved patient's sitting in the stretcher with no complaints. Given this patient appropriate for discharge at this time will discharge home with a prescription for meclizine and close follow-up with PCP I was consulted by the NOE, and we discussed the complexity of the problems being addressed.I approved the treatment and management plan for this patient?s care in the Emergency Department, thus performing a substantive portion of the medical decision making.Signed, Pool Rain MD MBA Critical Care <Fernanda Carson ([facility]), [employer] C[employer] SPECIALIST - Last Filed: 12/11/24 17:51> Critical Care Time Critical Care Time: No
[2024-12-11 17:10] LABS: Basophils % 0.2 % (0.1-2.0); Eosinophils # 0.1 K/mm3 (0.0-0.4); Eosinophils % 1.1 % (0.1-12.0); Hemoglobin 13.5 g/dL (14.1-18.0); Lymphocytes # 1.7 K/mm3 (0.7-4.5); Lymphocytes % 30.6 % (10-50); Mean Corpuscular HGB Conc 34.6 g/dL (31.8-35.4); Mean Corpuscular Hemoglobin 28.1 pg (27.0-31.2); Mean Corpuscular Volume 81.3 fl (80-94); Mean Platelet Volume 10.1 fl (7.4-10.4); Monocytes # 0.4 K/mm3 (0.1-1.0); Monocytes % 7.7 % (1.7-9.3); Neutrophils # 3.3 K/mm3 (1.8-7.8); Neutrophils % 60.2 % (37.0-80.0); Nucleated Red Blood Cells # 0 10^3/uL; Nucleated Red Blood Cells % 0 %; Platelet Count 219 K/mm3 (142-424); Red Cell Distribution Width 12.7 % (11.5-17.5); Red Cell Distribution Width-SD 37.4 fL; White Blood Count 5.5 K/mm3 (4.8-10.8)
[2024-12-11 17:30] VITALS: BP 135/76; PULSE 76; RESP 15; O2SAT 98
[2024-12-11 17:31] LABS: Albumin Level 4.5 g/dl (3.5-5.0); Chloride 104 mmol/L (98-107); Sodium 138 mmol/L (136-145)
[2024-12-11 17:32] LABS: Potassium 3.5 mmoL/L (3.5-5.1)
[2024-12-11 17:34] LABS: Alanine Aminotransferase 46 U/L (12-78); Albumin/Globulin Ratio 1.3 (1.1-1.8); Alkaline Phosphatase 71 U/L (38-126); Anion Gap 13.5 mEq/L (5-15); Aspartate Amino Transferase 40 U/L (17-59); Bilirubin,Total 0.8 mg/dl (0.2-1.3); Blood Urea Nitrogen 7 mg/dl (9-20); Carbon Dioxide 24 mmol/L (22.0-30.0); Creatinine Clearance Estimated 164 mL/min (50-200); Estimated Glomerular Filt Rate 93 ml/min (>60); GFR (African American) 113 ML/MIN (>60); Globulin 3.5 g/dL (1.3-3.2)
[2024-12-11 17:35] LABS: Calcium 8.9 mg/dl (8.4-10.2); Glucose 147 mg/dl (74-100)
[2024-12-11 17:52] VITALS: BP 141/87; PULSE 67; RESP 18; TEMP 36.6; O2SAT 98
== END 2024-12-11 17:57 | disposition home or self-care (01) ==
PROVIDERS: Nurse Practitioner Family; Emergency Provider Emergency Medicine; PCP Family Medicine
DX: R42 Dizziness and giddiness (principal); R11.0 Nausea
CPT/HCPCS: 99283; 80053; 85025; 93005

== ENCOUNTER 2025-04-06 13:12 | Outpatient (CLI) | payer MEDICARE, OTHER, SELFPAY ==
--- NOTE | 2025-04-06 13:16 | XR_ITS ---
FINAL REPORT CLINICAL HISTORY: right hip pain FINDINGS: RIGHT HIP 3 views of the right hip demonstrate no acute fracture or dislocation. The joint spaces appear normal. The visualized bony structures are well aligned. No soft tissue abnormality is seen. IMPRESSION: No acute bony abnormality. Reviewed, Interpreted and Dictated by Lincoln Williamson MD Transcribed by Venecia Carr Authenticated and [facility]
--- OUTSIDE RECORDS SUMMARY | 2025-04-06 13:16 | XMS_ITS | Encounter Summary ---
Author Organization [facility] Address [address] [place] [address] Care Team Providers Care Dock Superintendent Name Role Phone Vamsi Atwood MD Primary Care Provider [phone] Reason for Referral * Consultation (Routine) - Closed Specialty Diagnoses / Procedures Referred By Kyra adler Referred To Contact Otolaryngology Diagnoses Perforation of left tympanic membrane Tala Velásquez PA [address] [place] [address] Phone: tel: fax: Referral ID Status Reason Start Date Expiration Date V isits Requested Visits Authorized [id number] Closed Specialty Services Required 04/19/2021 10/16/2021 1 1 Encounter Details Date Type Department Care Team (Late st Contact Info) Description 04/19/2021 Community [facility] [address] [place] [address] Tala Velásquez PA [address] [place] [address] Perforation of left tympanic membrane (Primary Dx) Social History Tobacco Use Types Packs/Day Years Used Date Smoking Tobacco: Every Day Sex and Gender Information Value Date Recorded Sex Assigned at Not on file Legal Sex Male 7:07 PM EDT Gender Identity Not on file Sexual Orientation Not on file documented as of this encounter Plan of Treatment Scheduled Referrals Name Type Priority Associated Diagnoses Order Schedule Ambulatory Referral to ENT Outpatient Referral Routine Perforation of left tympanic membrane Expected: 04/19/2021 (Approximate), Expires: 07/20/2021 documented as of this encounter Visit Diagnoses Diagnosis Perforation of left tympanic membrane- Primary documented in this encounter Care Teams Dock Superintendent Relationship Specialty Start Date End Date Vamsi Atwood MD [address] [place] [address] PCP - General 01/12/21 documented as of this encounter
--- OUTSIDE RECORDS SUMMARY | 2025-04-06 13:16 | XMS_ITS | Clinical Summary ---
Author Organization [facility] Address [address] [place] [address] Care Team Providers Care Washing Machine Loader Name Role Phone Vamsi Atwood MD Primary Care Provider [phone] Allergies No known active allergies Medications methadone (Dolophine) 5 MG/5ML solution 17 mg. 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 HNP (herniated nucleus pulposus), lumbar 021 Lower back pain 10/24/2020 Lumbosacral radiculopathy at L5 10/24/2020 Immunizations Immunization Administration Dates Next Due Tdap 07/30/2020 Family History 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 Relation Name Comments Other cancer Other 1 Heart attack Other 2 Relation Name Status Comments Other 1 Other 2 Social History Tobacco Use Types Packs/Day Years Used Date Smoking Tobacco: Every Day Smokeless Tobacco: Never Alcohol Use Standard Drinks/Week Comments Never 0 (1 standard drink = 0.6 oz pur e alcohol) Sex and Gender Information Value Date Recorded Sex Assigned at Not on file Legal Sex Male 7:07 PM EDT Gender Identity Not on file Sexual Orientation Not on file Last Filed Vital Signs Vital Sign Reading Time Taken Comments Blood Pressure 142/90 07/16/2021 9:41 AM EST Pulse 98 07/16/2021 9:41 AM EST Temperature 36.9 C (98.4 F) 11/30/2020 2:19 PM EDT Respiratory Rate - - Oxygen Saturation - - Inhaled Oxygen Concentration - - Weight 104 kg (230 lb) 07/16/2021 9:41 AM EST Height 177.8 cm (5' 10 ) 07/16/2021 9:41 AM EST Body Mass Index 33 07/16/2021 9:41 AM EST Plan of Treatment Health Maintenance Due Date Last Done Comments [facility]-Depression Screening 1984 [facility]-Infant/Child/Adol SDOH Screenings 1984 [facility]-Varicella Vaccines (1 of 2 - 13+ 2-dose series) 1997 HPV Vaccines (1 - Male 3-dos e series) 1999 [facility]- SDOH Screenings 2002 [facility]-Adult SDOH Screenings 2002 [facility]-Hepatitis B Vaccines (1 of 3 - 19+ 3-dose series) 2003 [facility]-ISKFO-12 Vaccine (1 - 20 24-25 season) 2024 [facility]-Influenza Vaccine (#1) 2025 [facility]-DTaP,Tdap,and Td Vaccine s (2 - Td or Tdap) 07/30/2030 07/30/2020 [facility]-Zoster Vaccines (1 of 2) 2034 [facility]-HIB Vaccines Aged Out No longer e ligible based on patient's age to complete this topic [facility]-Hepatitis A Vaccines Aged Out No longer eligible based on patient's age to complete this topic [facility]-IPV Vaccines Aged Out No longer e ligible based on patient's age to complete this topic [facility]-Pneumococcal Vaccine: Pediatrics (0 to 5 Years) and At-Risk Patients (6 to 49 Years) Aged Out No long er eligible based on patient's age to complete this topic [facility]-Rotavirus Vaccines Aged Out No lo nger eligible based on patient's age to complete this [place] [address] Care Teams Washing Machine Loader Relationship Specialty Start Date End Date Vamsi Atwood MD [address] [place] [id number] PCP - General 01/12/21
== END 2025-04-06 23:59 | disposition home or self-care (01) ==
LOC: RAD 13:14
PROVIDERS: Visit Provider Physician Assistant
DX: M25.551 Pain in right hip (principal)
CPT/HCPCS: 73502

== ENCOUNTER 2025-04-12 20:21 | Emergency (ER) | payer MEDICARE, OTHER, SELFPAY ==
[2025-04-12 20:54] VITALS: BP 119/80; PULSE 64; RESP 18; TEMP 36.6; O2SAT 99; BMI 34.4
--- NOTE | 2025-04-12 21:03 | XR_ITS ---
PROCEDURE INFORMATION: Exam: XR Left Knee Exam date and time: 04/12/2025 9:08 PM Age: 39 years old Clinical indication: Pain; Knee; Left; Additional info: Pain medial TECHNIQUE: Imaging protocol: Radiologic exam of the left knee. Views: 3 views. COMPARISON: No relevant prior studies available. FINDINGS: Bones/joints: Normal. No fracture evident Soft tissues: Normal. IMPRESSION: No acute findings.
--- OUTSIDE RECORDS SUMMARY | 2025-04-12 21:06 | XMS_ITS | Encounter Summary ---
Author Organization [facility] Address [address] [place] [address] Care Team Providers Care Supervisor Plastering Name Role Phone Vamsi Atwood MD Primary Care Provider [phone] Reason for Referral * Consultation (Routine) - Closed Specialty Diagnoses / Procedures Referred By Kyra adler Referred To Contact Otolaryngology Diagnoses Perforation of left tympanic membrane Tala Velásquez PA [address] [place] [address] Phone: tel: fax: Referral ID Status Reason Start Date Expiration Date V isits Requested Visits Authorized [id number] Closed Specialty Services Required 04/19/2021 10/16/2021 1 1 Encounter Details Date Type Department Care Team (Late st Contact Info) Description 04/19/2021 Community [facility] [address] [place] [address] Tala Velásquez PA [address] [place] [address] Perforation of left tympanic membrane [...] Primary documented in this encounter Care Teams Supervisor Plastering Relationship Specialty Start Date End Date Vamsi Atwood MD [address] [place] [address] PCP - General 01/12/21 documented as of this encounter
--- OUTSIDE RECORDS SUMMARY | 2025-04-12 21:06 | XMS_ITS | Clinical Summary ---
Author Organization [facility] Address [address] [place] [address] Care Team Providers Care Puff Iron Operator Name Role Phone Vamsi Atwood MD Primary Care Provider [phone] Allergies No known active allergies Medications methadone [...] of 2 - 13+ 2-dose series) 1997 [facility]- SDOH Screenings 2002 [facility]-Adult SDOH Screenings 2002 [facility]-Hepatitis B Vaccines (1 of 3 - 19+ 3-dose series) 2003 HPV Vaccines (1 - 3-dose SCD M series) 2011 FIT-UPLAH-62 Vaccine (1 - 20 24-25 season) 2024 [...] age to complete this topic [place] [address] Care Teams Puff Iron Operator Relationship Specialty Start Date End Date Vamsi Atwood MD [address] [place] [id number] PCP - General 01/12/21
--- NOTE | 2025-04-12 21:10 | ED_ITS ---
<Statement entered by Charli Newton MD - 04/13/25 02:14> I was consulted by the NOE, and we discussed the complexity of the problems being addressed. I approve the treatment and management plan for this patient's care in the emergency department, thus performing a substantive portion of the medical decision making. Charli Newton MD Discharge Plan Disposition Patient Disposition: Home, Self-Care Prescriptions Prescriptions: New oxycodone 5 mg tablet 5 mg PO Q6H PRN (Reason: pain) Qty: 3 0RF No Action Ubrelvy 100 mg tablet 100 mg PO .COMPLEX Qty: 12 1RF Rx Instructions: 100 mg orally Take 1 with onset of headache, may repeat in 2 hours without relief up to 2 per 24 hours; amlodipine [Norvasc] 10 mg tablet 10 mg PO DAILY Qty: 90 3RF lisinopril 40 mg tablet 40 mg PO DAILY Qty: 90 3RF omeprazole 20 mg capsule,delayed release(DR/EC) 20 mg PO BID Qty: 180 3RF carvedilol [Coreg] 12.5 mg tablet 12.5 mg PO BID Qty: 180 3RF Rx Instructions: must administer with a meal/food celecoxib [Celebrex] 200 mg capsule 200 mg PO DAILY Qty: 30 2RF meclizine 25 mg tablet 25 mg PO BID PRN (Reason: dizziness) Qty: 7 0RF Referrals Follow up/Referrals: Arsen Black DO [Staff Physician, Orthopedics] - See instructions Savanah Brandon APRN [Primary Care Provider, Medical] - See instructions Activity Restrictions/Add. Instructions Additional Instructions/Restrictions: Use crutches as needed. Please take Tylenol and ibuprofen for pain. Use ice. Please call Dr. Black in the morning for appointment. Clinical Impressions Clinical Impression: Acute internal derangement of left knee Instructions Patient Instructions: DI for Knee Pain Print Language Print Language: [place]i Discharge ED Provider: Charli Newton General Adult HPI General Chief complaint: PAIN Stated complaint: L knee pain, pt says poss blown Time Seen by Provider: 04/12/25 20:48 Mode of Arrival: Wheelchair Source of Information: Patient Description of Symptoms (Recalled from ER Triage Doc. by RN): Pt presents to ED for L knee pain. Pt states he was playing softball when he hyper-extended his knee. Pt states it feels like something isn't right. Pt rates pain 8/10 with movement, 2/10 while sitting. History of Present Illness HPI narrative: 39-year-old male presents today for left knee pain. He was playing ball and twisted his left knee. He says it does not feel right . He says he can extend without a lot of pain. He says the pain is more medial on his knee. Patient states that the most pain is while moving his knee. He does have some mild pain while sitting. Related Data Previous Rx's ?Medication ?Instructions ?Recorded amlodipine 10 mg tablet (Norvasc) 10 mg PO DAILY #90 t abs 09/20/24 carvedilol 12.5 mg tablet (Coreg) 12.5 mg PO BID #180 tabs 09/20/24 lisinopril 40 mg tablet 40 mg PO DAILY #90 tabs 09/02 0/25 omeprazole 20 mg capsule,delayed 20 mg PO BID GERD #18 0 caps 09/20/24 release ubrogepant 100 mg tablet (Ubrelvy) 100 mg PO .COMPLEX #12 tabs 11/17/24 celecoxib 200 mg capsule (Celebrex) 200 mg PO DAILY Ar thritis #30 caps 11/30/24 meclizine 25 mg tablet 25 mg PO BID PRN dizziness # 7 tabs 12/11/24 oxycodone 5 mg tablet 5 mg PO Q6H PRN pain #3 tabs 04/12/25 Allergies Allergy/AdvReac Type Severity Reaction Status Date / Time erythromycin base Allergy Mild Verified 04/06/25 13:42 (ERYTHROMYCIN BASE) [facility] Disclaimer: The information contained in this section may have been updated after the patient was seen, as this information can be updated by other users. 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 current occupational status: other Travel in the last 8 weeks?: None housing: apartment Have you lived/traveled outside US in past 30 days?: No Contact w/someone who lives/traveled outside US past 30 days?: No Exposure to someone with infectious disease in past 14 days?: No Do you have a fever (greater than 100.4 F or 38 C)?: No Have you tested positive for COVID-19?: No Exposed to someone with COVID-19 in past 14 days?: No Do you have a sore throat?: No Do you have a cough?: No Do you have any weakness?: No Do you have any diarrhea?: No Are you experiencing any unusual bleeding?: No Do you have any muscle aches/pain?: No Do you have any abdominal pain?: No Are you experiencing loss of taste or smell?: No Other 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 Have you received the Flu Vaccine for this season: No Have you received the Pneumonia Vaccine: No ROS Obtained: Yes Systems reviewed as appropriate & no additional complaints except as documented Constitutional Constitutional: Reports as per HPI Physical Exam General General appearance: alert and in distress Head Head exam: normocephalic Eye Eye exam: Present PERRL and EOMI ENT ENT exam: Present mucous membranes moist Neck Neck exam: Present full ROM and trachea midline Respiratory Respiratory exam: Present other (No respiratory distress) Cardiovascular Cardiovascular exam: Present regular rate, normal rhythm, +S1 and +S2 Extremities Exam Extremities exam: Present tenderness, normal capillary refill and edema Neurological Exam Neurological exam: Present alert and oriented X3 Skin Skin exam: Present warm and dry Medical Decision Making Medical Records Screening: Per USPSTF and CDC recommendations, given the prevalence of disease in our region, it is our hospital?s policy to screen for HIV and viral Hepatitis for all patients aged 18 and over and those with ongoing risk factors. Ariel Inquiry Pt receiving controlled substance: No Ariel was queried for this patient: No Vital Signs: 04/12/25 20:54 04/12/25 22:20 Temperature 97.9 F 97.9 F Temperature Source Oral Oral Pulse Rate 68 Pulse Rate [Left] 64 Respiratory Rate 18 16 Blood Pressure 131/78 Blood Pressure [Right Arm] 119/80 Blood Pressure Mean [Right Arm] 93 02 Sat by Pulse Oximetry 99 Oxygen Delivery Method Room Air Room Air Orders (Tests/Meds): ED MEDICATIONS Discontinued Medications Generic Name Dose Route Start Last Admin Trade Name Lesli PRN Reason Stop Dose Admin Hydrocodone Bitart/Acetaminophen 2 tab 04/12/25 21:03 04/12/25 21:16 Hydrocodone/Apap 5/325 Mg Tablet PO 04/12/25 21:04 2 tab ONCE ONE Administration Dexamethasone Sodium Phosphate 8 mg 04/12/25 21:04 04/12/25 21:16 Dexamethasone 4mg/Ml 5ml Mdv IM 04/12/25 21:05 8 mg ONCE ONE Administration ORDERS Category Date Time Status Knee XR left 3 views [XR knee LT 3V] Stat Exams 04/12/25 21:03 Completed Medical Decision Narrative: patient is a 39-year-old male presenting to the emergency department for evaluation of left knee pain. Patient is hemodynamically stable and nontoxic- appearing upon arrival, afebrile. Differential diagnosis includes internal derangement of left knee, dislocation, sprain versus strain among others. Workup will be conducted with specific imaging. Initial inventions include analgesics. Patient given pain meds. Patient x-ray was negative. He does want crutches. He also does not want a CT scan that I ordered. He wants to follow- up with Dr. Black. Patient safe for discharge home Critical Care Critical Care Time Critical Care Time: No
[2025-04-12] MEDS: DEXAMETHASONE 4MG/ML 5ML MDV 8 MG IM (21:16)
[2025-04-12] MEDS: HYDROCODONE/APAP 5/325 MG TABLET 2 TAB PO (21:16)
[2025-04-12 22:20] VITALS: BP 131/78; PULSE 68; RESP 16; TEMP 36.6; O2SAT 99
== END 2025-04-12 22:23 | disposition home or self-care (01) ==
PROVIDERS: Emergency Provider Student in an Organized Health Care Education/Training Program; PCP Nurse Practitioner Family
DX: M23.92 Unspecified internal derangement of left knee (principal); M25.562 Pain in left knee; X50.1XXA Overexertion from prolonged static or awkward postures, initial encounter
CPT/HCPCS: 73562; 96372; 99283; J1100

== ENCOUNTER 2025-05-05 13:02 | Outpatient (RCR) | payer MEDICARE, OTHER, SELFPAY | END 2025-05-05 23:59 | disposition home or self-care (01) | LOC: PT 13:02 | PROVIDERS: Visit Provider Physician Assistant | DX: M25.562 Pain in left knee (principal) ==

== ENCOUNTER 2025-06-17 10:06 | Outpatient (CLI) | payer MEDICARE, OTHER, SELFPAY ==
[2025-06-17 05:49] VITALS: BMI 33.9
--- OUTSIDE RECORDS SUMMARY | 2025-06-17 10:13 | XMS_ITS | Encounter Summary ---
Author Organization [facility] Address [address] [place] [address] Care Team Providers Care [employer] Counselor Name Role Phone Vamsi Atwood MD Primary Care Provider [phone] Reason for Referral * Consultation (Routine) - Closed Specialty Diagnoses / Procedures Referred By Kyra daler Referred To Contact Otolaryngology Diagnoses Perforation of left tympanic membrane Tala Velásquez PA [address] [place] [address] Phone: tel: fax: Referral ID Status Reason Start Date Expiration Date V isits Requested Visits Authorized [id number] Closed Specialty Services Required 04/19/2021 10/16/2021 1 1 Encounter Details Date Type Department Care Team (Late st Contact Info) Description 04/19/2021 [facility] [address] [place] [address] Tala Velásquez PA [address] [place] [address] Perforation of left tympanic membrane [...] Primary documented in this encounter Care Teams [employer] Counselor Relationship Specialty Start Date End Date Vamsi Atwood MD [address] [place] [address] PCP - General 01/12/21 documented as of this encounter
--- OUTSIDE RECORDS SUMMARY | 2025-06-17 10:13 | XMS_ITS | Clinical Summary ---
Author Organization [facility] Address [address] [place] [address] Care Team Providers Care Flake Miller Helper Name Role Phone Vamsi Atwood MD Primary Care Provider [phone] Allergies No known active allergies Medications methadone [...] Date Last Done Comments [facility]-Depression Screening 1984 [facility]-/Child/Adol SDOH Screenings 1984 [facility]-Varicella Vaccines (1 of 2 - 13+ 2-dose series) 1997 [facility]- SDOH Screenings 2002 [facility]-Adult SDOH Screenings 2002 [facility]-Hepatitis B Vaccines (1 of 3 - 19+ 3-dose series) 2003 HPV Vaccines (1 - 3-dose SCD M series) 2011 [facility]-ADQST-18 Vaccine (1 - 20 24-25 season) 2025 [facility]-Influenza Vaccine (#1) 2025 [facility]-DTaP,Tdap,and Td Vaccine [...] age to complete [place] [address] Care Teams Flake Miller Helper Relationship Specialty Start Date End Date Vamsi Atwood MD [address] [place] [id number] PCP - General 01/12/21
--- NOTE | 2025-06-17 10:30 | ECG_ITS ---
APPROVED REPORT Exam: Resting ECG HR:73 bpm ECG Measurements Heart Rate 73 AXES AK 147 P 46 QRSd 75 QRS 42 QT 382 T 74 QTc 408 Conclusion SINUS RHYTHM NORMAL ECG UNCONFIRMED REPORT Electronically signed by : Jak Molina MD 06/17/2025 21:57:00
[2025-06-17 10:39] LABS: Hematocrit 41.2 % (42.0-52.0); Hemoglobin 14.4 g/dL (14.1-18.0); Immature Granulocytes % 0.2 %; Mean Corpuscular HGB Conc 35.0 g/dL (31.8-35.4); Mean Corpuscular Hemoglobin 29.1 pg (27.0-31.2); Mean Corpuscular Volume 83.4 fl (80-94); Nucleated Red Blood Cells % 0 %; Platelet Count 234 K/mm3 (142-424); Red Blood Count 4.94 M/mm3 (4.60-6.20); Red Cell Distribution Width-SD 40.2 fL; White Blood Count 4.4 K/mm3 (4.8-10.8)
[2025-06-17 10:50] LABS: Chloride 104 mmol/L (98-107); Potassium 3.7 mmoL/L (3.5-5.1); Sodium 140 mmol/L (136-145)
[2025-06-17 10:53] LABS: Anion Gap 15.7 mEq/L (5-15); Blood Urea Nitrogen 9 mg/dl (9-20); Calcium 9.0 mg/dl (8.4-10.2); Carbon Dioxide 24 mmol/L (22.0-30.0); Creatinine Clearance Estimated 173 mL/min (50-200); Creatinine,Serum 0.90 mg/dl (0.66-1.25); Estimated Glomerular Filt Rate 93 ml/min (>60); GFR (African American) 113 ML/MIN (>60); Glucose 193 mg/dl (74-100)
== END 2025-06-17 23:59 | disposition home or self-care (01) ==
LOC: PREOP 10:08
PROVIDERS: PCP Family Medicine; Visit Provider Orthopaedic Surgery
DX: Z01.810 Encounter for preprocedural cardiovascular examination (principal); Z01.812 Encounter for preprocedural laboratory examination; Z01.818 Encounter for other preprocedural examination
CPT/HCPCS: 80048; 85025; 93005

== ENCOUNTER 2025-06-21 07:52 | Day surgery (SDC) | payer MEDICARE, OTHER, SELFPAY ==
[2025-06-17 13:38] VITALS: BMI 34.4
[2025-06-21] VITALS (10 sets, daily range): BP systolic 104–143; BP diastolic 54–80; PULSE 59–74; RESP 16–20; TEMP 36.2–36.9; O2SAT 95–100; BMI 34.4
[2025-06-21] MEDS: LACTATED RINGERS 1000ML 1,000 ML 100 ML IV (08:18)
--- NOTE | 2025-06-21 08:22 | EXP.ANES.CKL ---
[facility] Disclaimer: The information contained in this section may have been updated after the patient was seen, as this information can be updated by other users. 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 Family history of coronary artery disease in father GERD (gastroesophageal reflux disease) Hypertension Surgical History History of back surgery History of right knee surgery Family History Other Family history of cancer Social History Smoking Status: Unknown if ever smoked alcohol intake: former substance use type: former substance user and IV drugs current occupational status: retired Travel in the last 8 weeks?: None housing: apartment Have you lived/traveled outside US in past 30 days?: No Contact w/someone who lives/traveled outside US past 30 days?: No Exposure to someone with infectious disease in past 14 days?: No Do you have a fever (greater than 100.4 F or 38 C)?: No Have you tested positive for COVID-19?: No Exposed to someone with COVID-19 in past 14 days?: No Do you have a sore throat?: No Do you have a cough?: No Do you have any weakness?: No Are you experiencing any nausea/vomitting?: No Do you have any diarrhea?: No Are you experiencing any unusual bleeding?: No Do you have any muscle aches/pain?: No Do you have any abdominal pain?: No Are you experiencing loss of taste or smell?: No [facility] Anesthesia Checklist Patient Identification Patient Identification: Arm Band and Verbal (Name & ) Structural Data Admitted From: Home Planned Operative Procedure/s: L knee scope Consent for Planned Operative Procedure(s) Verified: Yes Verified Documents: Surgical Consent and History and Physical NPO Status Verified Time NPO: 00:00 Additional verifications Anesthesia Reactions: No Hx Blood Transfusions: No Blood Transfusion Reaction: No Airway Assessment Mallampati Score:: Class II Dentition: Dentures-good fit Neurological Assessment Level of Consciousness: Awake, Alert and Appropriate Hx Seizures: No Numbness or tingling in extremities: No Anesthesia Plan Anesthesia Risk discussed: Yes Anesthesia Plan: Verified ASA Class: II Anesthesia Type: General
[2025-06-21] MEDS: RINGERS SOLUTION,LACTATED 6,000 ML 25 ML IR (09:33)
[2025-06-21] MEDS: BUPIVACAINE 0.25% 30ML VIAL 75 MG (09:33)
--- NOTE | 2025-06-21 10:12 | EXP.ANES.I ---
[facility] Anesthesia Record Part I Anesthesia Record I Intake, IV Amount: 600 Hydration: Adequate Estimated blood loss (mL): 5 Urine output (mL): 0 Blood Pressure: 104/54 SaO2: 95 Pulse Rate: 60 Airway Patency: Patent Respiratory Rate: 18 Temperature: 98.4 F Patient is:: Awake, Drowsy and Nasal O2 Stable to PACU at:: 10:19
--- NOTE | 2025-06-21 10:18 | EXP.OP.NOTE ---
Date of procedure: 06/21/25 Pre-op Diagnosis:: Left knee medial meniscus tear Post-op Diagnosis:: Large tear posterior horn medial meniscus Procedure performed:: Left knee arthroscopy with partial medial meniscectomy Surgeon:: Arsen Black DO Property Custodian(s):: Arturo SANTAMARIA MID LEVEL PROVIDER:: Yamile Abbasi Anesthesia: GETA Estimated blood loss (mL): 0 Operative findings:: Large tear posterior horn medial meniscus Operative note:: Patient identified preoperatively. Left knee marked with yes and my initials. Transported operative suite. Placed upon the operating bed. General anesthesia was administered airway secured. Left lower extremity prepped and draped within the knee pearson. Once prepped and draped final operative timeout performed to identify proper patient procedure and extremity. Everyone involved in the case agreed. There is no counter indications to beginning. Did receive preoperative antibiotics. Marking pen was used to dell the bony landmarks of the knee. Standard portal sites. Esmarch was used to exsanguinate the extremity pneumatic tourniquet inflated to 300 mmHg. Skin knife was used incise standard anterior lateral portal and blunt with trocar was placed in the patellofemoral joint exchange with a camera. Diagnostic arthroscopy began. I swept directly into the medial joint line. Within the medial joint line there was a large tear there was not a full bucket-handle tear but was a displaced tear stuck in the joint line of the medial meniscus. Using a spinal needle for proper trajectory standard anterior medial portal was made this exchanged with the probe. I was able to probe the large tear of the meniscus and reduce it with the knee flexed and extended it was very unstable would pop into the joint line. Because of patient preference for recovery we had discussed preoperatively the possibility of saving the meniscus with repair but he was unable to do so given the recovery period and wished to proceed with meniscectomy therefore partial medial meniscectomy was performed of the large tear of the posterior horn the medial meniscus. This removed the impediment and the joint there was underlying there is some softening of the cartilage on the femoral condyle where the meniscus was sitting torn and stuck in the knee. No full-thickness cartilage lesions were present partial medial meniscectomy completed attention is then brought to the intercondylar notch. The intercondylar notch showed the ACL intact with some mild fraying of the anterior fibers. Attention to the lateral joint line showed lateral meniscus intact lateral cartilage intact. I swept into the medial and lateral gutters no further pathology was seen there in the patellofemoral joint no pathology was seen. Camera was removed the joint was drained. Local anesthesia infiltrated the portal sites skin closed with nylon stitch. Dressing placed from toe to thigh patient waken anesthesia taken recovery stable condition. Condition: stable Disposition: PACU Complications:: None apparent
[2025-06-21] MEDS: HYDROMORPHONE 2MG/ML SYRINGE 0.5 MG IV ×2 (10:32→10:45)
--- NOTE | 2025-06-22 13:42 | EXP.ANES.II ---
[facility] Anesthesia Record Part II Anesthesia Record Part II Discharge Time: 10:49 Destination: Surgical Day Care (OP Surgery) PACU nurse assessment reviewed?: Yes Patient Condition:: Good Anesthesia Complications:: None Swallowing reflex intact?: Yes Airway Patency: Patent Cyanosis?: No Blood Pressure: 122/72 SaO2: 95 Respiratory Rate: 20 Pulse Rate: 66 Temperature: 98.1 F Mental Status: Alert & Oriented Pain level:: 0 Nausea and/or vomitting:: None Intake, IV Amount: 0 Hydration: Adequate
[2025-06-22 13:43] VITALS: BP 122/72; PULSE 66; RESP 20; TEMP 36.7; O2SAT 95
== END 2025-06-21 11:45 | disposition home or self-care (01) ==
PROVIDERS: PCP Family Medicine; Visit Provider Orthopaedic Surgery
PROC: (CPT 29870; principal; 2025-06-21 09:15)
DX: S83.242A Other tear of medial meniscus, current injury, left knee, initial encounter (principal); S83.512A Sprain of anterior cruciate ligament of left knee, initial encounter; X58.XXXA Exposure to other specified factors, initial encounter; Y93.64 Activity, baseball; I10 Essential (primary) hypertension; K21.9 Gastro-esophageal reflux disease without esophagitis; Z79.899 Other long term (current) drug therapy; Z88.1 Allergy status to other antibiotic agents
CPT/HCPCS: 29881; 96374; J0665; J0690; J1100; J1171; J1200; J2003; J2250; J2405; J2704; J3010; J7120